=== PATIENT | female | born 1940 | race Caucasian/White ===

== ENCOUNTER 2024-01-02 14:06 | Inpatient (IN) | payer MEDICARE, SELFPAY ==
--- NOTE | ~2024-01-02 | XR_ITS ---
EXAMINATION: XR PELVIS CLINICAL INFORMATION: Status post right hip hemiarthroplasty COMPARISON: 01/02/2024 right hip radiograph TECHNIQUE: AP view of the pelvis. FINDINGS: Stool and gas overlies the bony pelvis and sacrum thus precluding adequate evaluation. The right hip prosthesis is intact. Postsurgical changes overlie the right proximal thigh. Left hip intact. XR/XR pelvis 1-2V IMPRESSION: Satisfactory appearance of the right hip prosthesis. Detail of the bony pelvis is obscured. Electronically signed by: Richard Harding MD 01/05/2024 09:34 AM [facility]
--- NOTE | ~2024-01-02 | CT_ITS ---
EXAM: CT scan of the head and cervical spine. INDICATION: fall head strike TECHNIQUE: A noncontrast CT scan was performed from the skull base to the vertex. A noncontrast CT scan of the cervical spine was performed from the base of the skull through T1 at 2.5 mm and 1.25 mm collimation. Coronal and sagittal reformats were obtained at the acquisition workstation. This CT examination was performed using dose optimization techniques as appropriate, variously including the following: *Automated exposure control *Adjustment of mA and/or kV according to patient size (this includes techniques or standardized protocols for targeted exams where dose is matched to indication/reason for exam; i.e. extremities or head) *Use of iterative reconstruction technique DLP: mGy-cm COMPARISON: None FINDINGS: Head: There is no evidence of acute intracranial hemorrhage or territorial infarction. Barboza-white matter differentiation is preserved. No abnormal mass effect or midline shift. No extra-axial fluid collections. No abnormal attenuation is demonstrated within the brain parenchyma. Scattered periventricular and deep white matter hypodensities consistent with microangiopathy. The ventricles and sulcal spaces are proportional without hydrocephalus. Proportional prominence of the ventricles and sulcal spaces. No acute osseous or soft tissue abnormalities. The mastoid air cells and visualized portions of the paranasal sinuses are notable for right maxillary sinus disease. Cervical Spine: The atlantooccipital and atlantoaxial articulations remain well aligned. Straightening of the normal cervical lordosis. Otherwise, there is anatomic alignment of the vertebral bodies and posterior elements. No evidence of acute fracture or subluxation. The vertebral body heights and disc spaces are notable for moderate disc space narrowing consistent with degenerative disc disease at C5-6 and C6-7.. There is no prevertebral soft tissue swelling. The thyroid gland and remaining cervical soft tissues are normal in appearance. The lung apices demonstrate no abnormalities. CT/CT cervical spine wo IV con IMPRESSION: No acute intracranial pathology. No acute fracture subluxation cervical spine. Electronically signed by: Richard Rendon MD 01/02/2024 05:40 PM [facility]
--- NOTE | ~2024-01-02 | CT_ITS ---
EXAM: CT scan of the head and cervical spine. INDICATION: fall head strike TECHNIQUE: A noncontrast CT scan was performed from the skull base to the vertex. A noncontrast CT scan of the cervical spine was performed from the base of the skull through T1 at 2.5 mm and 1.25 mm collimation. Coronal and sagittal reformats were obtained at the acquisition workstation. This CT examination was performed using dose optimization techniques as appropriate, variously including the following: *Automated exposure control *Adjustment of mA and/or kV according to patient size (this includes techniques or standardized protocols for targeted exams where dose is matched to indication/reason for exam; i.e. extremities or head) *Use of iterative reconstruction technique DLP: mGy-cm COMPARISON: None FINDINGS: Head: There is no evidence of acute intracranial hemorrhage or territorial infarction. Barboza-white matter differentiation is preserved. No abnormal mass effect or midline shift. No extra-axial fluid collections. No abnormal attenuation is demonstrated within the brain parenchyma. Scattered periventricular and deep white matter hypodensities consistent with microangiopathy. The ventricles and sulcal spaces are proportional without hydrocephalus. Proportional prominence of the ventricles and sulcal spaces. No acute osseous or soft tissue abnormalities. The mastoid air cells and visualized portions of the paranasal sinuses are notable for right maxillary sinus disease. Cervical Spine: The atlantooccipital and atlantoaxial articulations remain well aligned. Straightening of the normal cervical lordosis. Otherwise, there is anatomic alignment of the vertebral bodies and posterior elements. No evidence of acute fracture or subluxation. The vertebral body heights and disc spaces are notable for moderate disc space narrowing consistent with degenerative disc disease at C5-6 and C6-7.. There is no prevertebral soft tissue swelling. The thyroid gland and remaining cervical soft tissues are normal in appearance. The lung apices demonstrate no abnormalities. CT/CT head/brain wo IV con IMPRESSION: No acute intracranial pathology. No acute fracture subluxation cervical spine. Electronically signed by: Richard Rendon MD 01/02/2024 05:40 PM [facility]
--- NOTE | ~2024-01-02 | XR_ITS ---
EXAMINATION: XR KNEE, RIGHT CLINICAL INFORMATION: Right knee pain COMPARISON: None available. TECHNIQUE: Four views of the right knee. FINDINGS: No fracture or joint effusion. Alignment is anatomic. Minimal decrease in the medial joint space. Vascular calcifications noted in the thigh, popliteal fossa, and calf. XR/XR knee RT 4V IMPRESSION: 1. No acute fracture or dislocation. 2. Minimal degenerative changes of the medial joint space. Electronically signed by: Shirlene Hand MD 01/02/2024 04:14 PM [facility]
--- NOTE | ~2024-01-02 | US_ITS ---
EXAMINATION: US NONINVASIVE ASSESSMENT OF THE RIGHT LOWER EXTREMITY WITH ARTERIAL DUPLEX CLINICAL INFORMATION: RLE cold, no pulses COMPARISON: None available. TECHNIQUE: Duplex Doppler techniques with waveform analysis and measurement of velocities in the right common femoral, profunda femoris, superficial femoral, popliteal and tibial arteries were performed. FINDINGS: Common femoral artery: 77 cm/s. Diastolic flow reversal: No Profunda femoris artery: 39 cm/s. Diastolic flow reversal: No Superficial femoral artery (proximal): 175 cm/s. Diastolic flow reversal: No Superficial femoral artery (mid): 25 cm/s. Diastolic flow reversal: No Superficial femoral artery (distal): 39 cm/s. Diastolic flow reversal: No Popliteal artery: 23 cm/s Diastolic flow reversal: No Posterior tibial artery: 8 cm/s Diastolic flow reversal: No US/US arterial duplex LE RT IMPRESSION: Severe peripheral vascular disease. Monophasic flow throughout the right lower extremity suggesting inflow disease. Electronically signed by: Ashley Spaulding MD 01/02/2024 04:51 PM [facility]
--- NOTE | ~2024-01-02 | US_ITS ---
EXAMINATION: US TRIPLEX LOWER EXTREMITY, RIGHT CLINICAL INFORMATION: RLE pain and swelling COMPARISON: None available. TECHNIQUE: Color-flow triplex imaging with spectral analysis and compression Doppler were performed on the right lower extremity. FINDINGS: Respiratory variation, normal compression and augmented flow are noted throughout the right lower extremity. The visualized common femoral vein, superficial femoral vein, profunda femoral vein, popliteal vein and midcalf peroneal and posterior tibial venous segments show no evidence of deep venous thrombosis. There is no Marcos's cyst. US/US venous duplex LE RT IMPRESSION: No evidence of deep venous thrombosis involving the right lower extremity. Electronically signed by: Ashley Spaulding MD 01/02/2024 04:49 PM EST [facility]
--- NOTE | ~2024-01-02 | XR_ITS ---
EXAMINATION: XR HIP, RIGHT CLINICAL INFORMATION: Trauma COMPARISON: CT abdomen pelvis earlier today at 4:40 PM TECHNIQUE: Two views of the right hip. FINDINGS: Again seen is the impacted right subcapital femoral neck fracture, better demonstrated on the CT scan earlier today . The acetabular/femoral joint is intact. No other fractures are seen. Severe vascular calcifications are present. XR/XR hip RT w PEL1V IMPRESSION: Impacted right subcapital femoral neck fracture. Electronically signed by: Kunal Palafox MD 01/02/2024 07:27 PM [facility]
--- NOTE | ~2024-01-02 | CT_ITS ---
EXAMINATION: CT CHEST, ABDOMEN AND PELVIS WITHOUT CONTRAST CLINICAL INFORMATION: fall. abdominal trauma COMPARISON: None TECHNIQUE: Multidetector volumetric CT imaging of the chest, abdomen and pelvis was obtained without IV contrast. Axial MIP volume rendering provided. Sagittal and coronal reformatted images were obtained. This CT examination was performed using dose optimization techniques as appropriate, variously including the following: *Automated exposure control *Adjustment of mA and/or kV according to patient size (this includes techniques or standardized protocols for targeted exams where dose is matched to indication/reason for exam; i.e. extremities or head) *Use of iterative reconstruction technique DLP: 202 mGy-cm FINDINGS: LUNGS: Severe centrilobular emphysema. No focal consolidation, pleural effusion, or pneumothorax. MEDIASTINUM: The heart is not enlarged. There is no pericardial effusion or pericardial thickening. Extensive atherosclerosis of the thoracic aorta There are no pathologically enlarged mediastinal or hilar lymph nodes. AXILLA: No lymphadenopathy. LIVER, GALLBLADDER, AND BILIARY TREE: The liver is normal in size, shape, and attenuation. Cyst in the left lobe measuring 3 cm with calcified internal septations. There is no intra or extrahepatic bile duct dilation. The gallbladder is unremarkable with no evidence of radiopaque gallstones, gallbladder wall thickening, or obvious pericholecystic inflammatory changes. PANCREAS: Unremarkable SPLEEN: Unremarkable ADRENAL GLANDS: Unremarkable KIDNEYS AND URETERS: The kidneys are normal in size, shape, and attenuation. No hydronephrosis, hydroureter, or calculi seen. No perinephric stranding. BLADDER: Distended GASTROINTESTINAL TRACT: Large stool burden. ABDOMINAL WALL: No significant hernia is appreciated. LYMPH NODES: Normal PERITONEUM: No free intraperitoneal fluid or air. VASCULAR: Infrarenal abdominal aortic aneurysm measuring 5.2 x 3.9 cm. Extensive atherosclerotic plaque abdominal aorta and iliofemoral vessels. PELVIC VISCERA: Unremarkable OSSEOUS STRUCTURES: Impacted, angulated right subcapital femoral neck fracture. Angulated right second rib fracture anteriorly. CT/CT abdomen pelvis wo IV con IMPRESSION: 1. Impacted, angulated right subcapital femoral neck fracture. 2. Angulated right second rib fracture anteriorly. Infrarenal abdominal aortic aneurysm measuring 5.2 x 3.9 cm. Based on published guidelines in J Am Kristine Radiol 2013; 10(10):789-794 and J Vasc Surg. 2018; 67:2-77, the recommendation for an abdominal aortic aneurysm with diameter 4.5-5.4 cm is vascular consultation and subsequent follow-up every 6 months. 3. Severe centrilobular emphysema. Electronically signed by: Silverio Stark MD 01/02/2024 05:44 PM [facility]
[2024-01-02 14:16] VITALS: BP 220/110; BP 222/93; PULSE 70; RESP 14; TEMP 36.6; O2SAT 96; BMI 12.5
--- NOTE | 2024-01-02 14:52 | ED.FALL ---
HPI - Fall General Chief Complaint: Fall Stated Complaint: Fall w/ knee pain Time Seen by Provider: 01/02/24 14:32 Source: patient, family and EMS Mode of arrival: EMS Limitations: no limitations History of Present Illness ED Provider: NOELLE Limon HPI Narrative: This is a an 83-year-old female who has not been seen by a doctor in over 30 years presenting to the emergency department status post fall 2 days ago, previous to this fall she had another fall a few days prior, she comes in with right lower extremity pain. She is not sure exactly how she fell a few days ago she states that after the fall she could not move her right lower extremity, it feels numb & pain has been worsening her right lower extremity feels cold and it is now discolored. She refused to come to the hospital on that day, her daughter tried to convince her to come in however she adamantly refused they were able to finally convinced her today as she still has not been able to bear weight on that right lower extremity or bend her right knee. Patient is a current daily smoker. Denies chest pain, shortness of breath, headache, vision changes, dizziness, weakness, abdominal pain. Related Data Allergies Allergy/AdvReac Type Severity Reaction Status Date / Time Sulfa (Sulfonamide Allergy Unknown Verified 01/02/24 14:19 Antibiotics) Review of Systems Review of Systems: Yes all other systems are reviewed and are negative [facility] Past Medical History Attestation statement: The following information was validated with the patient. Source: old records reviewed and nursing notes reviewed Social History Social History Advance Directives: No Advance Directives Information Provided: Yes Do you have a plan to hurt others: No Plan Physical Exam Vital Signs: Vital Signs: Last Vital Signs Temp 98 F 01/02/24 14:16 Pulse 65 01/02/24 15:41 Resp 16 01/02/24 15:41 BP 239/101 H 01/02/24 15:41 Pulse Ox 96 01/02/24 15:41 O2 Del Method Room Air 01/02/24 15:41 BMI result Body Mass Index 12.5 vss Appearance: Alert.? Oriented X3.? No acute distress.? Cachectic appearing Head: Normocephalic, atraumatic, no step-offs or deformities Eyes: Pupils equal, round and reactive to light.? ENT: Pharynx normal.? Neck: Normal inspection.? Neck supple.? CVS: Normal heart rate and rhythm.? Pulses normal.? Respiratory: No respiratory distress.? Breath sounds normal.? Abdomen: Soft and nontender.? Skin: Skin warm and dry.? Normal skin color.? Normal skin turgor.? Extremities: No lower extremity edema.? No calf ttp. Global weakness. Unable to palpate popliteal, dorsalis pedis, anterior tibialis posterior tibialis pulses on the right. Palpable pulses on the left. Patient is guarding her right lower extremity around the knee she states she is unable to bend it. She is able to freely move her hip, ankle on the right however not her knee. Normal distal sensation. Normal left lower extremity with full range of motion to hip, knee and ankle. Right lower extremity appears slightly mottled and discolored. Back: No midline tenderness, no C-spine tenderness, full range of motion, no CVA tenderness bilaterally Neuro: Oriented X 3.? No motor deficit.? No sensory deficit. CN 2-12 intact Course Reevaluation(s) Reevaluation #1: CBC with no anemia, or leukocytosis. Thrombocytosis noted, nonspecific, could be secondary to poor p.o. intake are chronically elevated. Chemistry with LYDIA fluids ordered. No other findings requiring acute intervention. Troponin and CPK still pending. Coags unremarkable. X-ray of knee, DVT study and arterial scan pending. Time: 15:33 Reevaluation #2: Patient's troponin elevated to 107.3, nonischemic EKG this could be secondary to demand from hypertension and or rhabdo/kidney injury. Will repeat at the 3 hour salvador. Time: 16:00 Medications Administered Generic Name Dose Route Start Last Admin Trade Name Freq PRN Reason Stop Dose Admin Sodium Chloride 1,000 mls @ 999 mls/hr 01/02/24 15:30 01/02/24 15:29 Ns IV 01/02/24 16:30 999 mls/hr .Q1H1M [facility] Administration Medical Decision Making Medical Decision Making [facility] Narrative: 1455 83-year-old female presents with fall 2 days ago and right lower extremity pain. Physical exam significant for No lower extremity edema.? No calf ttp. Global weakness. Unable to palpate popliteal, dorsalis pedis, anterior tibialis posterior tibialis pulses on the right. Palpable pulses on the left. Patient is guarding her right lower extremity around the knee she states she is unable to bend it. She is able to freely move her hip, ankle on the right however not her knee. Normal distal sensation. Normal left lower extremity with full range of motion to hip, knee and ankle. Right lower extremity appears slightly mottled and discolored. Will rule out fracture, dislocation of right knee/patella as well as arterial and venous occlusion of right lower extremity. Due to fall, trauma and unclear reason as to why patient fell will obtain CT head, neck, chest, abdomen and pelvis. Will also obtain a CPK to rule out rhabdo. No signs of intracranial hemorrhage, stroke, posterior stroke. No signs of cervical spine injury. Plan labs, imaging. Differential Diagnosis Differential Diagnoses: The differential diagnosis associated with the presentation includes (Will rule out fracture, dislocation of right knee/patella as well as arterial and venous occlusion of right lower extremity. Due to fall, trauma and unclear reason as to why patient fell will obtain CT head, neck, chest, abdomen and pelvis. Will also obtain a CPK to rule out rhabdo. No signs of i) Admission/Observation Consideration of admission/observation: Escalation of care including admission/observation considered Lab Data MDM Lab Attestation statement: I reviewed the patient's lab results. 01/02/24 14:57 01/02/24 14:57 Labs: Lab Results 01/02/24 01/02/24 Range/Units 14:57 15:25 WBC 9.9 (4.8-10.8) X10*3/uL RBC 4.91 (4.20-5.50) X10*6/uL Hgb 15.0 (12.0-16.0) g/dl Hct 46.0 (37.0-47.0) % MCV 93.7 (80.0-98.0) fL MCH 30.5 (27.0-33.0) pg MCHC 32.6 (31.0-35.0) g/dl RDW 14.4 (11.0-16.0) % Plt Count 659 H (160-400) X10*3/uL MPV 8.9 L (9.4-12.3) fL Immature Gran % (Auto) 0.8 H (0.0-0.4) % Neut % (Auto) 84.6 H (45-73) % Lymph % (Auto) 5.0 L (20-40) % [place] % (Auto) 9.2 (2-11) % Eos % (Auto) 0.1 (0-4) % Baso % (Auto) 0.3 (0-2) % Lymph # (Auto) 0.5 L (1.2-4.9) X10*3/uL [place] # (Auto) 0.9 (0.1-1.2) X10*3/uL Eos # (Auto) 0.0 (0.0-0.4) X10*3/uL Baso # (Auto) 0.0 (0.0-0.2) X10*3/uL Abs Immat Gran (auto) 0.08 H (0.00-0.03) X10*3/uL Absolute Neuts (auto) 8.4 H (2.0-8.3) x10*3/uL Absolute Nucleated RBC 0.000 (0.0-0.012) X10*3/uL Nucleated RBC % (auto) 0.0 (0.0-0.2) /100WBC PT 10.4 L (10.9-12.4) SEC INR 0.9 (0.9-1.1) Sodium 143 (135-145) mmol/L Potassium 5.1 (3.3-5.1) mmol/L Chloride 100 (96-108) mmol/L Carbon Dioxide 28 (22-29) mmol/L Anion Gap 20 (12-20) BUN 47 H (9-16) mg/dL Creatinine 1.49 H (0.5-1.4) mg/dL Estim Creat Clear Calc 15.3 Estimated GFR 33 Random Glucose 119 H (60-115) mg/dL Calcium 10.5 H (8.4-10.2) mg/dL Magnesium 2.1 (1.6-2.6) mg/dL Total Bilirubin 0.6 (0.0-1.0) mg/dL AST 83 H (5-31) U/L ALT 56 H (0-31) U/L Alkaline Phosphatase 87 (39-117) U/L Total Creatine Kinase 1446 H (26-140) U/L Troponin I High Sens 207.3 H* (<3.5-17.0) ng/L Total Protein 7.4 (6.5-8.0) g/dL Albumin 4.1 (3.5-5.0) g/dL Independent Interpretation I performed an independent interpretation of an: EKG (Vent. Rate : 076 BPM Atrial Rate : 076 BPM P-R Int : 126 ms QRS Dur : 066 ms QT Int : 372 ms P-R-T Axes : 083 -68 076 degrees QTc Int : 418 ms Sinus rhythm with Premature atrial complexes Left axis deviation Anteroseptal infarct , age undetermined Abnormal ECG No previ) and CT Scan Radiology Impression Discussion of test interpretation with radiology: I have reviewed the radiologist's reading. Critical Care Time Critical Care Time Critical Care Time: Yes Total Critical Care Time: 35 Attestation: I attest to this time spent taking care of the patient, obtaining history, physical, reviewing labs, imaging, treatment of patients condition +/- specialist/hospitalist consult Discharge Plan Discharge Clinical Impression: Acute pain of right knee, Fall, Rhabdomyolysis, LYDIA (acute kidney injury), Hypertension Patient Disposition: Still a Patient Print Language: Armenian
--- NOTE | 2024-01-02 14:56 | ECG_ITS ---
Test Reason : fall Blood Pressure : / mmHG Vent. Rate : 076 BPM Atrial Rate : 076 BPM P-R Int : 126 ms QRS Dur : 066 ms QT Int : 372 ms P-R-T Axes : 083 -68 076 degrees QTc Int : 418 ms Sinus rhythm with Premature atrial complexes Left axis deviation Anteroseptal infarct , age undetermined Abnormal ECG No previous ECGs available Referred By: Heidi Limon Electronically Signed By:STELLA AGUILAR MD
[2024-01-02 15:02] LABS: MANUAL DIFF FLAG NO
[2024-01-02 15:04] LABS: Basophils Percent Auto 0.3 % (0-2); Eosinophils Percent Auto 0.1 % (0-4); Imm Gran Abs Auto 0.08 X10*3/uL (0.00-0.03); Imm Gran Pct Auto 0.8 % (0.0-0.4); Lymphocytes Absolute Auto 0.5 X10*3/uL (1.2-4.9); Mean Corpuscular HGB Conc 32.6 g/dl (31.0-35.0); Mean Corpuscular Hemoglobin 30.5 pg (27.0-33.0); Mean Corpuscular Volume 93.7 fL (80.0-98.0); Mean Platelet Volume 8.9 fL (9.4-12.3); Monocytes Absolute Auto 0.9 X10*3/uL (0.1-1.2); Monocytes Percent Auto 9.2 % (2-11); Neutrophils Absolute Auto 8.4 x10*3/uL (2.0-8.3); Neutrophils Percent Auto 84.6 % (45-73); Platelet Count 659 X10*3/uL (160-400); Red Blood Count 4.91 X10*6/uL (4.20-5.50); Red Cell Distribution Width 14.4 % (11.0-16.0); White Blood Count 9.9 X10*3/uL (4.8-10.8)
[2024-01-02 15:11] LABS: INTERNATIONAL NORM RATIO 0.9 (0.9-1.1); Prothrombin Time 10.4 SEC (10.9-12.4)
[2024-01-02 15:16] LABS: Alanine Aminotransferase 56 U/L (0-31); Albumin Level 4.1 g/dL (3.5-5.0); Alkaline Phosphatase 87 U/L (39-117); Anion Gap 20 (12-20); Aspartate Amino Transferase 83 U/L (5-31); Bilirubin Total 0.6 mg/dL (0.0-1.0); Blood Urea Nitrogen 47 mg/dL (9-16); Calcium 10.5 mg/dL (8.4-10.2); Carbon Dioxide 28 mmol/L (22-29); Chloride 100 mmol/L (96-108); Creatinine Clr Calc Pharmacy 15.3; Estimated Glomerular Filt Rate 33; Glucose Random 119 mg/dL (60-115); Magnesium 2.1 mg/dL (1.6-2.6); Potassium 5.1 mmol/L (3.3-5.1); Sodium 143 mmol/L (135-145); Total Protein 7.4 g/dL (6.5-8.0)
[2024-01-02] MEDS: 0.9 % Sodium Chloride 1,000 ML 999 ML IV ×2 (15:29→17:05)
--- NOTE | 2024-01-02 15:35 | PC.NURSE ---
patient presents to the ED via ems stating that she fell two days ago on her right side/leg and has been non ambulatory since. patient daughter at bedside stated to this RN during triage patient right lower limb was colder than the left. patient undressed into hospital attire and left calf/ankle/foot noted to be ashen, mottled and cold to the touch. patient unable to lift leg but able to wiggle toes. unable to find pedal pulse with doppler or palpation, but patient noted to have weak popiteal pulse. IV access started in the patients left FA #[id number], labs drawn and sent. called ED provider to bedside due to patient findings. patient has not seen a doctor in 30 years, is not on any current medications.
[2024-01-02 15:41] VITALS: BP 239/101; PULSE 65; RESP 16; O2SAT 96
[2024-01-02 15:56] LABS: Troponin-I High Sensitivity 207.3 ng/L (<3.5-17.0)
[2024-01-02] MEDS: amLODIPine Besylate 5 MG TABLET PO (16:39)
[2024-01-02 17:42] VITALS: BP 187/82; PULSE 59; RESP 12; O2SAT 98
[2024-01-02] MEDS: Morphine Sulfate 2 MG/ML CARTRIDGE IVPUSH ×2 (18:18→23:13)
[2024-01-02] MEDS: ondansetron HCL 4 MG/2 ML VIAL IVPUSH (18:18)
--- NOTE | 2024-01-02 18:48 | PC.NURSE ---
16 fr clinton placed by this RN, 700 cc urine output
--- NOTE | 2024-01-02 19:33 | PM.IMHP ---
History of Present Illness Date of Service: 01/02/24 Attending physician on admission: Kelsey Selby Chief Complaint: Right knee and leg pain Pt is a 83-year-old female with no known significant PMH who has not seen a medical provider in 30+ years who presents to the ED with?right leg and knee pain after a mechanical fall at home 2 days prior. Pt is accompanied by her daughters who help supplement HPI. Pt reports was putting the TV remote on a side table when she fell, landing on her right side. Pt is unsure exactly how she fell but denies lightheadedness or dizziness. Experienced right knee and leg pain and found she was unable to stand or support her weight. Also had right foot numbness and felt right leg was cold. Called out to her daughter who lives in a separate part of the house and she and her were able to help patient back into the bed. Family attempted to convince patient to come to the ED at that time for further evaluation, but patient refused as she likes to take care of herself. The following day pt had continued pain and was unable to ambulate or support weight on her right leg, but again refused medical evaluation. Patient eventually relented today to come to the hospital for treatment. Family also reports patient apparently had another fall at home earlier in the week. Patient otherwise denies any acute medical complaints. No change to bowel or bladder habits. Denies chest pain/pressure, palpitations. No shortness of breath or difficulty breathing. Denies nausea, vomiting, abdominal pain. Of note, daughter states patient has not left the house and over 5 years. Patient has around a 100+ pack-year smoking history. Has been smoking mostly 2 packs per day since age 14, though recently cut back to a pack daily. Normally eats 1-2 meals daily and drinks Boost nutritional supplement. In the ED pt was hypertensive up to 239/101, vitals otherwise stable and WNL. Labs were significant for BUN 47, creatinine 1.49, AST 83, ALT 56, CPK 1446, and initial troponin 207.3 with repeat flat at 148.0. No leukocytosis. Stable H&H. No significant electrolyte abnormalities. Hip and pelvis x-ray showed impacted right subcapital femoral neck fracture. Right lower extremity arterial duplex showed severe peripheral vascular disease without occlusion, suggesting inflow disease. X-ray of right knee negative for acute fracture or dislocation. Venous duplex of right lower extremity negative for DVT. Head CT negative for acute intracranial pathology. CT of cervical spine negative for acute fracture or subluxation. CT of chest and abdomen found angulated right 2nd rib fracture anteriorly, triple a measuring 5.2 x 3.9 cm, and severe centrilobular emphysema. EKG demonstrated sinus rhythm with PACs but no evidence of significant ST elevations or depressions. Pt was treated with 2 L IVF, morphine, acetaminophen, ondansetron, amlodipine 5 mg p.o., and labetalol 5 mg IV. Pt will be admitted to the hospital for treatment and further evaluation of acute right hip fracture with surgical intervention likely on Thursday. Review of Systems Review of Systems: Negative except for that which is stated in the HPI Yes all other systems are reviewed and are negative [facility] Social History Advance Directives: No Advance Directives Information Provided: Yes Do you have a plan to hurt others: No Plan Meds Allergies Allergy/AdvReac Type Severity Reaction Status Date / Time Sulfa (Sulfonamide Allergy Unknown Verified 01/02/24 14:19 Antibiotics) Physical Exam Vital Signs and Narrative: Vital Signs: Last Vital Signs Temp 98 F 01/02/24 14:16 Pulse 59 01/02/24 17:42 Resp 12 01/02/24 17:42 BP 187/82 H 01/02/24 17:42 Pulse Ox 98 01/02/24 17:42 O2 Del Method Room Air 01/02/24 17:42 BMI result Body Mass Index 12.5 General: AOx3, cachectic, frail looking, in no acute distress Resp: Lungs clear to auscultation but diminished bilaterally CVS: Regularly irregular rhythm GI: +BS, NT, no distention Skin: Warm, dry Neuro: Cranial nerves II-XII grossly intact bilaterally. Motor grossly intact bilaterally Extremities: No edema. Right leg cool to the touch and shortened and externally rotated. Reduced ROM of right hip secondary to pain. Psych: Appropriate affect Results Labs 01/02/24 14:57 01/02/24 14:57 Labs: Laboratory Results - last 24 hr 01/02/24 01/02/24 14:57 15:25 MCV 93.7 MCH 30.5 MCHC 32.6 RDW 14.4 Plt Count 659 H MPV 8.9 L Immature Gran % (Auto) 0.8 H Neut % (Auto) 84.6 H Lymph % (Auto) 5.0 L [place] % (Auto) 9.2 Eos % (Auto) 0.1 Baso % (Auto) 0.3 Lymph # (Auto) 0.5 L [place] # (Auto) 0.9 Eos # (Auto) 0.0 Baso # (Auto) 0.0 Abs Immat Gran (auto) 0.08 H Absolute Neuts (auto) 8.4 H Absolute Nucleated RBC 0.000 Nucleated RBC % (auto) 0.0 PT 10.4 L INR 0.9 Anion Gap 20 Estim Creat Clear Calc 15.3 Estimated GFR 33 Random Glucose 119 H Calcium 10.5 H Magnesium 2.1 Total Bilirubin 0.6 AST 83 H ALT 56 H Alkaline Phosphatase 87 Total Creatine Kinase 1446 H Troponin I High Sens 207.3 H* Total Protein 7.4 Albumin 4.1 Imaging Radiologist's Impressions: Impressions Knee X-Ray 01/02/24 15:00 IMPRESSION: 1. No acute fracture or dislocation. 2. Minimal degenerative changes of the medial joint space. Electronically signed by: Shirlene Hand MD 01/02/2024 04:14 PM EST RP Venous Duplex 01/02/24 15:47 IMPRESSION: No evidence of deep venous thrombosis involving the right lower extremity. Electronically signed by: Ashley Spaulding MD 01/02/2024 04:49 PM EST RP Duplex Scan Lower Extremity Artery 01/02/24 15:51 IMPRESSION: Severe peripheral vascular disease. Monophasic flow throughout the right lower extremity suggesting inflow disease. Electronically signed by: Ashley Spaulding MD 01/02/2024 04:51 PM EST RP Abdomen/Pelvis CT 01/02/24 16:17 IMPRESSION: 1. Impacted, angulated right subcapital femoral neck fracture. 2. Angulated right second rib fracture anteriorly. Infrarenal abdominal aortic aneurysm measuring 5.2 x 3.9 cm. Based on published guidelines in J Am Kristine Radiol 2013; 10(10):789-794 and J Vasc Surg. 2018; 67:2-77, the recommendation for an abdominal aortic aneurysm with diameter 4.5-5.4 cm is vascular consultation and subsequent follow-up every 6 months. 3. Severe centrilobular emphysema. Electronically signed by: Silverio Stark MD 01/02/2024 05:44 PM EST RP Cervical Spine CT 01/02/24 16:17 IMPRESSION: No acute intracranial pathology. No acute fracture subluxation cervical spine. Electronically signed by: Richard Rendon MD 01/02/2024 05:40 PM EST RP Chest CT 01/02/24 16:17 IMPRESSION: 1. Impacted, angulated right subcapital femoral neck fracture. 2. Angulated right second rib fracture anteriorly. Infrarenal abdominal aortic aneurysm measuring 5.2 x 3.9 cm. Based on published guidelines in J Am Kristine Radiol 2013; 10(10):789-794 and J Vasc Surg. 2018; 67:2-77, the recommendation for an abdominal aortic aneurysm with diameter 4.5-5.4 cm is vascular consultation and subsequent follow-up every 6 months. 3. Severe centrilobular emphysema. Electronically signed by: Silverio Stark MD 01/02/2024 05:44 PM EST RP Head CT 01/02/24 16:17 IMPRESSION: No acute intracranial pathology. No acute fracture subluxation cervical spine. Electronically signed by: Richard Rendon MD 01/02/2024 05:40 PM EST RP Hip/Pelvis X-Ray 01/02/24 18:45 IMPRESSION: Impacted right subcapital femoral neck fracture. Electronically signed by: Kunal Palafox MD 01/02/2024 07:27 PM EST RP Assessment and Plan (1) Closed right hip fracture: Status: Acute Plan Pt is a 83-year-old female with no known significant PMH who has not seen a medical provider in 30+ years who presents to the ED with?right leg and knee pain after a mechanical fall at home 2 days prior. Pt will be admitted to the hospital for treatment and further evaluation of acute right hip fracture. Right hip fracture S/p mechanical fall at home 2 days prior Hip x-ray found impacted right subcapital femoral neck fracture Analgesics for pain management Orthopedic consult NPO past midnight on Thursday in anticipation of surgical intervention on Thursday morning Rhabdomyolysis CPK mildly elevated at 1446 Likely in the setting of above Patient received IVF in the ED Trend CPK tomorrow Elevated troponins Initial troponin 207.3 with repeat down trending to 148.0 Patient asymptomatic, EKG without ischemic changes Likely type 2 in the setting of increased demand Monitor on telemetry Hypertensive urgency BP as high as 239/101, patient asymptomatic Patient not on any home meds, has not seen a medical provider in 30+ years Patient received amlodipine 5 mg p.o. and labetalol 5 mg IV in the ED Will start on amlodipine 5 mg p.o. daily Labetalol 5 mg IV p.r.n. for SBP>200 Will work to slowly decrease SBP over the next few days AAA CTA of chest found infrarenal AAA measuring 5.2 x 3.9 cm Likely secondary to uncontrolled hypertension Treat HTN as above Vascular surgery consult PVD Right lower extremity arterial duplex found severe peripheral vascular disease without occlusion, likely inflow disease Vascular surgery consult Elevated creatinine Creatinine 1.49 at time of presentation, baseline unknown ?CKD 4 Patient received 2 L IVF in the ED Follow renal function Severe protein calorie malnutrition BMI 12.5 Likely secondary to decreased p.o. intake Nutrition consult Ensure supplementation DNR/DNI, verified with pt and family at bedside Attending:?Dr. Martinez DVT Prophylaxis: Pneumatic compression due to impending surgical intervention Pt will require a hospitalization of at least two nights for treatment of acute right hip fracture requiring surgical intervention that will be performed on Thursday. Patient will need?close monitoring of vitals, including blood pressure due to uncontrolled hypertension, as well as analgesics and close monitoring of labs. Quality Stroke Does the patient have a stroke diagnosis?: No VTE Prior VTE?: No VTE Risk Level:: Medical - moderate - high VTE Device Contraindication: N/A - Device Ordered VTE Drug Contraindication: Treatment Not Indicated
[2024-01-02 19:54] VITALS: BP 222/81; PULSE 71
[2024-01-02] MEDS: Labetalol HCL 100 MG/20 ML VIAL IVPUSH (19:54)
--- NOTE | 2024-01-02 19:54 | MHC.EDTECH ---
this tech noticed a light pink bed sore on pt's coccyx, no open sore. pt is now currently laying left lateral with a pillow underneath her to prevent further injuries. RN made aware
[2024-01-02] MEDS: Acetaminophen 1,000 MG/100 ML PIGGYBACK 400 MG IV (19:57)
[2024-01-02 20:38] VITALS: BP 163/70; PULSE 59; RESP 12; TEMP 36.8; O2SAT 94
[2024-01-03] VITALS: BP 173/79; PULSE 59; RESP 16; TEMP 37.1; O2SAT 96
[2024-01-03 00:05] VITALS: BMI 12.5
--- NOTE | 2024-01-03 01:52 | MHC.EVENTN ---
Patient converted to NSR at 2100 on 01/01, MD made aware, Amiodarone Drip stopped.
--- NOTE | 2024-01-03 01:54 | PC.ADMIT ---
Patient arrived to S4 via stretcher from ED, patients daughters at bedside. Patient is alert/oriented, appears slightly confused but patients daughters state it is because of the morphine and that normally she is sharp as a tack . Patient lives with her in a two family house. They live upstairs and the patients daughter lives downstairs. Smoker for 70 yrs, down to 1/2 pack day. Patient normally ambulates independently but has been declining over the past 6 months. She has a 4 leg cane at home that she doesnt use. Daughters report generalized weakness and a history of falls within last 6 months. Decreased appetite, loss of weight, not very mobile at home, mostly on the couch watching television. Patient reports macular degeneration and poor eye-sight. 34.1 kg by bedscale. Daughters left boost drinks that she has been drinking tonight. IV morphine administered before moving her and assessing her skin and condition. Her skin is thin, fragile, dry, but intact. Coccyx red but blanchable, barrier cream and pink pad place over coccyx and repositioning every 2-4 hours. Blood pressure is coming down slowly, currently in the 170's. Oxygen was 89%, lungs are clear/dim. Patient placed on 1-2L overnight to get sats >92%. She has no complaints of pain at this time and tolerated rolling well without any signs of discomfort. Abdomen is soft, non tender. F/C in place draining clear yellow urine. Patients daughters would like to be notified before Ortho consult so that they could be present. No acute events. Will continue to [facility].
[2024-01-03 03:43] VITALS: BP 164/77; PULSE 97; RESP 16; TEMP 36.6; O2SAT 90
[2024-01-03 08:00] VITALS: BP 156/76; PULSE 58; RESP 16; TEMP 36.8; O2SAT 98
[2024-01-03] MEDS: amLODIPine Besylate 5 MG TABLET PO (08:36)
[2024-01-03] MEDS: 0.9 % Sodium Chloride Flush 3 ML SYRINGE IVFLUSH ×2 (08:36→18:16)
--- NOTE | 2024-01-03 08:39 | PHA.MEDREC ---
Addendum entered by Graciela Valenzuela RPh 01/03/24 08:48: Reviewed by [facility] Original Note: Pharmacy Consult ? Medication Reconciliation Pharmacy has completed the medication reconciliation.
--- NOTE | 2024-01-03 09:31 | MHC.CM.PN ---
CM met with Patient at bedside and addressed IMM with her, providing Patient with the original and a copy has been placed on the chart. CM assisted Patient with the completion of a HCP; she has named her Daughter/Nimco as her HCP. STR appears likely, pending PT eval and Patient is agreeable to the initiation of a local SNF search. CM has initiated and will follow for dc planning. Patient lives in an apartment with her and has not seen a PCP in 30 years.
--- NOTE | 2024-01-03 09:53 | PM.CNOR ---
History of Present Illness HPI Consult date: 01/03/24 Chief complaint: right hip fracture Narrative: Patient is an 83-year-old female with a history significant for not evaluated by a doctor for over 30 years who presented to the hospital yesterday for evaluation of right leg pain after a fall 2 days prior. Patient states that she has been unable to weightbear since injury. Patient was evaluated in the emergency department, where x-rays and CT scans were taken revealing right femoral neck fracture of the right hip. Of note, patient was also diagnosed with rhabdomyolysis in the emergency department, as well as having elevated troponins. While in the ED,The patient was also found to have a significant abdominal aortic aneurysm, as well as severe peripheral vascular disease of the right lower extremity. At that time, patient was reporting diminished sensation and paleness of the right lower extremity. Today, the patient reports that she is feeling well, although she is still experiencing Diminished sensation and ability to move the right foot. No other acute complaints or concerns at this time. [facility] Social History Social History Household Members: Spouse and Children Household Members Other:: lives with / children live in same home downstairs Housing: House Do you presently have visiting nurse or other home services: No Patient Tobacco Use Status: Current everyday Tobacco user Tobacco use type: Cigarette Cigarette Packs Per Day: 0.5 Cigarettes Per Day: 10.0 Years Smoked: 70 Smoked in Last 30 Days: Yes Patient Interested in Nicotine Replacement: Yes Patient Given Instructions on How to Stop Smoking: Yes Date Education Initiated: 01/02/24 Second Hand Smoke Exposure: Yes Use of substances other than those prescribed or required for medical reasons: No Currently Displaying Signs/Symptoms of Drug Intoxication Withdrawal: No Have you been hit, kicked, punched, or otherwise hurt by someone within the past year? If so, by whom?: No Do you feel safe in your current relationship?: No Is there a partner from a previous relationship who is making you feel unsafe now?: No Are you made to feel afraid or neglected: No Advance Directives: No Advance Directives Information Provided: Yes Advance Directives on File: Yes Advance Directives Date on File: 01/02/24 Do you have a plan to hurt others: No Plan Recently lost weight without trying: Yes How much weight loss: Unsure Eating poorly because of decreased appetite: Yes Nutrition screen score: 5 Nutrition Risks: No Nutritional Risk Patient : No : No Poor oral hygiene: No service: No Meds Allergies Allergy/AdvReac Type Severity Reaction Status Date / Time Sulfa (Sulfonamide Allergy Unknown Verified 01/02/24 14:19 Antibiotics) Active Medications: Current Medications Acetaminophen (Acetaminophen 325 Mg Tablet) 650 mg PO Q6H PRN PRN Reason: Pain, Mild (Pain Scale 1-3), fever or headache Amlodipine Besylate (Amlodipine Besylate 5 Mg Tablet) 5 mg PO DAILY [facility]; Protocol Last Admin: 01/03/24 08:36 Dose: 5 mg Benzonatate (Benzonatate 100 Mg Capsule) 100 mg PO TID PRN PRN Reason: Cough Calcium Carbonate (Calcium Carbonate 750 Mg Tab.Chew) 750 mg PO Q4H PRN PRN Reason: Heartburn Cefazolin Sodium/Dextrose (Ancef) 2 gm in 50 mls @ 100 mls/hr IV PREOP ONE Stop: 01/04/24 08:29 Labetalol HCl (Labetalol Hcl 100 Mg/20 Ml Vial) 5 mg IVPUSH ONCE PRN PRN Reason: SBP >200 Magnesium Hydroxide (Milk Of Magnesia 30 Ml Oral.Susp) 30 ml PO DAILY PRN PRN Reason: Constipation Melatonin (Melatonin 3 Mg Tablet) 6 mg PO BEDTIME PRN PRN Reason: Insomnia Morphine Sulfate (Morphine Sulfate 2 Mg/Ml Cartridge) 2 mg IVPUSH Q4H PRN; Protocol PRN Reason: Pain, Severe (Pain Scale 7-10) Last Admin: 01/02/24 23:13 Dose: 2 mg Nicotine (Nicotine 21 Mg Patch.Td24) 21 mg TRANSDERMA DAILY [facility] Last Admin: 01/03/24 08:37 Dose: Not Given Ondansetron HCl (Ondansetron Hcl 4 Mg/2 Ml Vial) 4 mg IVPUSH Q8H PRN PRN Reason: Nausea and Vomiting Sodium Chloride (0.9 % Sodium Chloride Flush 3 Ml Syringe) [facility] Last Admin: 01/03/24 08:36 Dose: 3 ml Home Medications ?Medication ?Instructions ?Recorded ?Confirmed ?Last Taken ?Type acetaminophen 500 mg tablet 500 mg PO Q6H PRN Pain 01/03/24 01/03/24 Unknown History Physical Exam Vital Signs: Vital Signs: Last Vital Signs Temp 98.2 F 01/03/24 08:00 Pulse 58 01/03/24 08:00 Resp 16 01/03/24 08:00 BP 156/76 H 01/03/24 08:00 Pulse Ox 98 01/03/24 08:00 O2 Del Method Nasal Cannula 01/03/24 08:00 O2 Flow Rate 2.0 01/03/24 08:00 BMI result Body Mass Index 12.5 Extrem: Other: On inspection, patient's right leg is slightly shortened, but not externally rotated No evidence of erythema, ecchymosis No evidence of infection Patient has diminished ability to flex and extend the right foot Compartments soft, nontender Distal sensation diminished, capillary refill very delayed, consistent with severe peripheral vascular disease found on arterial flow scan Results Labs 01/02/24 14:57 01/02/24 14:57 Labs: Abnormal lab results 01/02/24 01/02/24 01/02/24 Range/Units 14:57 15:25 19:16 Plt Count 659 H (160-400) X10*3/uL MPV 8.9 L (9.4-12.3) fL Immature Gran % (Auto) 0.8 H (0.0-0.4) % Neut % (Auto) 84.6 H (45-73) % Lymph % (Auto) 5.0 L (20-40) % Lymph # (Auto) 0.5 L (1.2-4.9) X10*3/uL Abs Immat Gran (auto) 0.08 H (0.00-0.03) X10*3/uL Absolute Neuts (auto) 8.4 H (2.0-8.3) x10*3/uL PT 10.4 L (10.9-12.4) SEC BUN 47 H (9-16) mg/dL Creatinine 1.49 H (0.5-1.4) mg/dL Random Glucose 119 H (60-115) mg/dL Calcium 10.5 H (8.4-10.2) mg/dL AST 83 H (5-31) U/L ALT 56 H (0-31) U/L Total Creatine Kinase 1446 H (26-140) U/L Troponin I High Sens 207.3 H* 148.0 H* (<3.5-17.0) ng/L H & H 01/02/24 Range/Units 14:57 Hgb 15.0 (12.0-16.0) g/dl Hct 46.0 (37.0-47.0) % Coagulation 01/02/24 Range/Units 14:57 INR 0.9 (0.9-1.1) All other labs normal. Diagnostic results Hip x-ray: report reviewed and image reviewed (X-rays obtained in the ED yesterday and independently reviewed by me, Jesse Valenzuela PA-C, demonstrate minimally displaced and impacted femoral neck fracture of the right hip. ) Hip CT: report reviewed and image reviewed Assessment and Plan (1) Closed fracture of neck of right femur: Status: Acute Plan 1. Femoral neck fracture right hip Status post fall proximally 2 days ago Case was discussed with Dr. Mason, and a collaborative treatment plan was formed: I educated the patient about the condition. I discussed both operative and nonoperative treatment options. The patient would like to proceed with surgery. The risks and benefits of operative treatment were discussed with the patient and the patient wishes to proceed with surgery. These risks include, but are not limited to, risk of damage to blood vessels, nerves, tendons, infection, recurrence, blood clots, incomplete relief of preoperative symptoms, persistent pain, possible need for further surgery, and the risks associated with regional blocks and/or anesthesia. Plan is to take the patient to the operating room on 01/04/2024 for the following procedures pending medical clearance: 1. Right hip hemiarthroplasty NPO at midnight Continue with all other recommendations per Medicine Procedures Date of Service Date of Service: 01/03/24
--- NOTE | 2024-01-03 10:30 | P.PNIM_ITS ---
Subjective Subjective Date of Service: 01/03/24 Interval History: pain controlled Physical Exam 2 Vital Signs: Vital Signs: Last Vital Signs Temp 98.2 F 01/03/24 08:00 Pulse 58 01/03/24 08:00 Resp 16 01/03/24 08:00 BP 156/76 H 01/03/24 08:00 Pulse Ox 98 01/03/24 08:00 O2 Del Method Nasal Cannula 01/03/24 08:00 O2 Flow Rate 2.0 01/03/24 08:00 BMI result Body Mass Index 12.5 General: AO X 3, no acute distress, frail appearing, cechexic Resp: diminished bilateral, no accessory muscles used CVS: S1,S2,RRR GI: soft, non tender, non distended Neuro: motor grossly intact, alert Psych: appropriate affect, appropriate insight Objective Data Active Medications Acetaminophen (Acetaminophen 325 Mg Tablet) 650 mg PO Q6H PRN PRN Reason: Pain, Mild (Pain Scale 1-3), fever or headache Amlodipine Besylate (Amlodipine Besylate 5 Mg Tablet) 5 mg PO DAILY [facility]; Protocol Last Admin: 01/03/24 08:36 Dose: 5 mg Documented By: PODMORP Benzonatate (Benzonatate 100 Mg Capsule) 100 mg PO TID PRN PRN Reason: Cough Calcium Carbonate (Calcium Carbonate 750 Mg Tab.Chew) 750 mg PO Q4H PRN PRN Reason: Heartburn Cefazolin Sodium/Dextrose (Ancef) 2 gm in 50 mls @ 100 mls/hr IV PREOP ONE Stop: 01/04/24 08:29 Labetalol HCl (Labetalol Hcl 100 Mg/20 Ml Vial) 5 mg IVPUSH ONCE PRN PRN Reason: SBP >200 Magnesium Hydroxide (Milk Of Magnesia 30 Ml Oral.Susp) 30 ml PO DAILY PRN PRN Reason: Constipation Melatonin (Melatonin 3 Mg Tablet) 6 mg PO BEDTIME PRN PRN Reason: Insomnia Morphine Sulfate (Morphine Sulfate 2 Mg/Ml Cartridge) 2 mg IVPUSH Q4H PRN; Protocol PRN Reason: Pain, Severe (Pain Scale 7-10) Last Admin: 01/02/24 23:13 Dose: 2 mg Documented By: ANDREZ Nicotine (Nicotine 21 Mg Patch.Td24) 21 mg TRANSDERMA DAILY [facility] Last Admin: 01/03/24 08:37 Dose: Not Given Documented By: PODMORP Non-Admin Reason: Patient Refused Ondansetron HCl (Ondansetron Hcl 4 Mg/2 Ml Vial) 4 mg IVPUSH Q8H PRN PRN Reason: Nausea and Vomiting Sodium Chloride (0.9 % Sodium Chloride Flush 3 Ml Syringe) 3 ml IVFLUSH QSHIFT [facility] Last Admin: 01/03/24 08:36 Dose: 3 ml Documented By: PODMORP Labs 01/02/24 14:57 01/02/24 14:57 Labs: Laboratory Results - last 24 hr 01/02/24 01/02/24 01/02/24 14:57 15:25 19:16 MCV 93.7 MCH 30.5 MCHC 32.6 RDW 14.4 Plt Count 659 H MPV 8.9 L Immature Gran % (Auto) 0.8 H Neut % (Auto) 84.6 H Lymph % (Auto) 5.0 L Barron % (Auto) 9.2 Eos % (Auto) 0.1 Baso % (Auto) 0.3 Lymph # (Auto) 0.5 L Barron # (Auto) 0.9 Eos # (Auto) 0.0 Baso # (Auto) 0.0 Abs Immat Gran (auto) 0.08 H Absolute Neuts (auto) 8.4 H Absolute Nucleated RBC 0.000 Nucleated RBC % (auto) 0.0 PT 10.4 L INR 0.9 Anion Gap 20 Estim Creat Clear Calc 15.3 Estimated GFR 33 Random Glucose 119 H Calcium 10.5 H Magnesium 2.1 Total Bilirubin 0.6 AST 83 H ALT 56 H Alkaline Phosphatase 87 Total Creatine Kinase 1446 H Troponin I High Sens 207.3 H* 148.0 H* Total Protein 7.4 Albumin 4.1 Assessment and Plan (1) Closed right hip fracture: Status: Acute Plan 83F who does not follow with PCP, no listed PMH presented s/p fall, found to be hypertensive, cachexic, emphysema on imaging, RLE severe PVD, AAA, rib fracture, and right femoral neck fracture fall complicated by right hip fracture follow up ortho, patient moderate to high risk for moderate risk procedure Mild acute rhabdomyolysis IV fluids Elevated troponin Likely demand ischemia from hypertension Echo Hypertensive urgency Improved, continue amlodipine, monitor AAA Outpatient follow-up Right lower extremity peripheral vascular disease Vascular eval Elevated creatinine Unclear if CKD 3 versus LYDIA, monitor Severe protein calorie malnutrition Encourage p.o. intake COPD with hypoxia Suspect hypoxia chronic, O2 for goal of 90% DVT prophylaxis mechanical due to pending surgery DNR/DNI reason for continued hospitalization: Surgery pending Quality Stroke Does the patient have a stroke diagnosis?: No VTE Prior VTE?: No VTE Risk Level:: Medical - moderate - high VTE Device Contraindication: N/A - Device Ordered VTE Drug Contraindication: Treatment Not Indicated
[2024-01-03 11:53] VITALS: RESP 18
[2024-01-03] MEDS: Morphine Sulfate 2 MG/ML CARTRIDGE IVPUSH ×2 (11:53→21:21)
[2024-01-03] MEDS: Acetaminophen 325 MG TABLET 650 MG PO (13:11)
[2024-01-03 14:40] LABS: Anion Gap 16 (12-20); Blood Urea Nitrogen 35 mg/dL (9-16); Calcium 9.6 mg/dL (8.4-10.2); Carbon Dioxide 25 mmol/L (22-29); Chloride 102 mmol/L (96-108); Creatinine Clr Calc Pharmacy 19.2; Estimated Glomerular Filt Rate 43; Glucose Random 291 mg/dL (60-115); Potassium 5.4 mmol/L (3.3-5.1); Sodium 138 mmol/L (135-145)
[2024-01-03 15:22] LABS: Estimated Average Glucose 128 mg/dL; Hemoglobin A1C 150.6887 umol/L; Hemoglobin A1c % 6.1 % (<6.0); Total Hemoglobin (HGBA1C) 3534.9138 umol/L
[2024-01-03 18:13] VITALS: BP 160/70; PULSE 65; RESP 18; TEMP 36.8; O2SAT 92
[2024-01-03 19:38] VITALS: BP 160/70; PULSE 68; RESP 17; TEMP 37; O2SAT 96
[2024-01-04] VITALS (12 sets, daily range): BP systolic 127–195; BP diastolic 69–97; PULSE 55–69; RESP 14–20; TEMP 36.3–37.1; O2SAT 78–100; BMI 12.5
[2024-01-04] MEDS: Morphine Sulfate 2 MG/ML CARTRIDGE IVPUSH ×2 (01:21→11:29)
[2024-01-04] MEDS: 0.9 % Sodium Chloride Flush 3 ML SYRINGE IVFLUSH ×3 (01:22→22:01)
--- NOTE | 2024-01-04 07:00 | CA_ITS ---
Transthoracic Echocardiogram Patient (Last, First, Middle): Soumya Watkins, Gender: Female Date of : 1940 Age: 83 Procedure Date: 01/04/2024 Procedure Type: Transthoracic Echocardiogram [place] [facility] [place]: 165.1 cm Weight: 34.02 kg BSA: 1.30 m2 Heart Rate: 56 bpm BP: 187 / 97 mmHg Supervisor Coating: Referring MD: Andres Dodson MD Symptoms: troponemia, htn Study Quality: Adequate ECG Rhythm: Sinus Conclusions: - Normal left ventricular size and systolic function. There is mildly increased left ventricular wall thickness. The visually estimated ejection fraction is between 55-60%. - E/E prime ratio is between 8 and 15 consistent with indeterminate filling pressures. - Mildly increased right ventricular cavity size. There is normal right ventricular systolic function. - There is mild to moderate mitral valve regurgitation. - Mild pulmonary hypertension is present. Findings Left Ventricle Normal left ventricular size and systolic function. There is mildly increased left ventricular wall thickness. The visually estimated ejection fraction is between 55-60%. There is no evidence of regional wall motion abnormalities. Abnormal diastolic function is noted. Spectral Doppler is indicative of an impaired relaxation filling pattern. E/E prime ratio is between 8 and 15 consistent with indeterminate filling pressures. Right Ventricle Mildly increased right ventricular cavity size. There is normal right ventricular systolic function. Atria The left atrium is normal in size. Aortic Valve There is a normal trileaflet aortic valve. There is no aortic valve stenosis. There is trace (trivial) aortic valve regurgitation. Mitral Valve The mitral valve appears normal. There is mild to moderate mitral valve regurgitation. There is no mitral valve stenosis. Pulmonic Valve Normal pulmonic valve structure and function. There is trace pulmonic valve regurgitation. Tricuspid Valve Normal tricuspid valve structure. There is no tricuspid valve regurgitation. The right ventricular systolic pressure is 39 mmHg. Normal right atrial pressure. Mild pulmonary hypertension is present. Great Vessels All visible segments of the aorta are normal in size. Venous The inferior vena cava is normal in size and collapses greater than 50% with inspiration. Pericardium/Pleural Prominent epicardial adipose tissue noted. There is no evidence of pericardial effusion. Prior Study Comparison No prior study available for comparison. Measurements 2D Linear Measurements IVSd: 1.15 0.6-0.9/0.6-1.0 cm LVIDd: 3.13 3.9-5.3/4.2-5.9 cm LVIDd Index: 2.41 2.4-3.2/2.2-3.1 cm/m2 LVIDs: 2.06 2.0-3.6 cm LVPWd: 1.07 0.7-1.1 cm Ao Root: 2.70 2.1-3.5 cm LA Diam: 2.20 2.7-3.8/3.0-4.0 cm LAIDs Index: 1.69 1.5-2.3 cm/m2 LV Mass: 127.36 67-162/88-224 g LV Mass Index: 97.97 43-95/49-115 g/m2 LVOT Diam: 2.00 3.0+(-)1.3 cm Mitral Valve MV Pk E: 0.57 MV PK A: 0.91 MV Decel Time: 184.00 E/A: 0.60 E'Lateral: 4.57 E'Medial: 4.57 E/E' Med: 12.60 E/E' Lat: 12.60 PHT: 54.00 MVA PHT: 4.07 Decel Cuming: 3.11 Aortic Valve AoV Pk Thomas: 1.27 AoV Mn Thomas: 0.76 AoV VTI: 0.30 AoV Pk Grad: 6.00 Aov Mn Grad: 3.00 MIROSLAVA Cont.VTI: 2.40 LVOT LVOT Pk Thomas: 0.74 LVOT Mn Thomas: 0.47 LVOT VTI: 0.23 LVOT Pk Grad: 2.00 LVOT Mn Grad: 1.00 LVOT Diam: 2.00 LVOT Area: 3.14 Diastolic Function MV Pk E: 0.57 MV Pk A: 0.91 E/A: 0.60 E'Medial: 4.57 E/E' Med: 12.60 E' Laterial: 4.57 E/E' Lat: 12.60 Right Ventricle TAPSE (mm): 17.00 TVS' Thomas: 14.00 Tricuspid Valve TR Pk Thomas: 3.01 TR Pk Grad: 36.00 RA Press: 3.00 RVSP: 39.00 Great Vessels Aorta Ao Root-2D: 2.70 2.0-3.7 cm Ao Asc: 2.60 2.1-3.4 cm Pulmonary Valve PV Pk Thomas: 0.74 Peak PV Grad: 2.00 Updated in Other Vendor System with Status of Final Lavon Vargas MD electronically signed on 01/04/2024 12:15:11 PM with status of Final
[2024-01-04 08:06] LABS: Hematocrit 40.8 % (37.0-47.0); Hemoglobin 13.2 g/dl (12.0-16.0); Mean Corpuscular HGB Conc 32.4 g/dl (31.0-35.0); Mean Corpuscular Hemoglobin 30.8 pg (27.0-33.0); Mean Corpuscular Volume 95.3 fL (80.0-98.0); Mean Platelet Volume 9.3 fL (9.4-12.3); Platelet Count 617 X10*3/uL (160-400); Red Blood Count 4.28 X10*6/uL (4.20-5.50); Red Cell Distribution Width 14.5 % (11.0-16.0)
[2024-01-04 08:25] LABS: Anion Gap 14 (12-20); Blood Urea Nitrogen 55 mg/dL (9-16); Calcium 9.2 mg/dL (8.4-10.2); Carbon Dioxide 26 mmol/L (22-29); Chloride 104 mmol/L (96-108); Cholesterol 179 mg/dL (<200); Estimated Glomerular Filt Rate 51; Glucose Fasting 100 mg/dL (60-99); Glucose Random 99 mg/dL (60-115); HDL Cholesterol 69 mg/dL (>40); LDL Cholesterol Calculated 90 mg/dL (<100); Potassium 5.1 mmol/L (3.3-5.1); Sodium 139 mmol/L (135-145); Triglycerides 100 mg/dL (<150)
[2024-01-04] MEDS: amLODIPine Besylate 5 MG TABLET PO (09:41)
--- NOTE | 2024-01-04 09:54 | P.PNIM_ITS ---
Subjective Subjective Date of Service: 01/04/24 Interval History: pain controlled Physical Exam 2 Vital Signs: Vital Signs: Last Vital Signs Temp 98.2 F 01/04/24 07:35 Pulse 55 01/04/24 07:35 Resp 20 01/04/24 07:35 BP 155/72 H 01/04/24 07:35 Pulse Ox 97 01/04/24 07:35 O2 Del Method Nasal Cannula 01/04/24 07:35 O2 Flow Rate 3 01/04/24 07:35 BMI result Body Mass Index 12.5 General: AO X 3, no acute distress, frail appearing, cechexic Resp: diminished bilateral, no accessory muscles used CVS: S1,S2,RRR GI: soft, non tender, non distended Neuro: motor grossly intact, alert Psych: appropriate affect, appropriate insight Objective Data Active Medications Acetaminophen (Acetaminophen 325 Mg Tablet) 650 mg PO Q6H PRN PRN Reason: Pain, Mild (Pain Scale 1-3), fever or headache Last Admin: 01/03/24 13:11 Dose: 650 mg Documented By: SERAMOMAYO Amlodipine Besylate (Amlodipine Besylate 5 Mg Tablet) 5 mg PO DAILY [facility]; Protocol Last Admin: 01/04/24 09:41 Dose: 5 mg Documented By: MINDY Benzonatate (Benzonatate 100 Mg Capsule) 100 mg PO TID PRN PRN Reason: Cough Calcium Carbonate (Calcium Carbonate 750 Mg Tab.Chew) 750 mg PO Q4H PRN PRN Reason: Heartburn Labetalol HCl (Labetalol Hcl 100 Mg/20 Ml Vial) 5 mg IVPUSH ONCE PRN PRN Reason: SBP >200 Magnesium Hydroxide (Milk Of Magnesia 30 Ml Oral.Susp) 30 ml PO DAILY PRN PRN Reason: Constipation Melatonin (Melatonin 3 Mg Tablet) 6 mg PO BEDTIME PRN PRN Reason: Insomnia Morphine Sulfate (Morphine Sulfate 2 Mg/Ml Cartridge) 2 mg IVPUSH Q4H PRN; Protocol PRN Reason: Pain, Severe (Pain Scale 7-10) Last Admin: 01/04/24 01:21 Dose: 2 mg Documented By: RANDY Nicotine (Nicotine 21 Mg Patch.Td24) 21 mg TRANSDERMA DAILY [facility] Last Admin: 01/04/24 09:41 Dose: Not Given Documented By: MINDY Non-Admin Reason: Patient Refused Ondansetron HCl (Ondansetron Hcl 4 Mg/2 Ml Vial) 4 mg IVPUSH Q8H PRN PRN Reason: Nausea and Vomiting Sodium Chloride (0.9 % Sodium Chloride Flush 3 Ml Syringe) 3 ml IVFLUSH QSHIFT [facility] Last Admin: 01/04/24 09:41 Dose: 3 ml Documented By: MINDY Labs 01/04/24 05:30 01/04/24 05:30 Labs: Laboratory Results - last 24 hr 01/03/24 01/03/24 01/04/24 14:15 14:17 05:30 MCV 95.3 MCH 30.8 MCHC 32.4 RDW 14.5 Plt Count 617 H MPV 9.3 L Absolute Nucleated RBC 0.000 Nucleated RBC % (auto) 0.0 Hold Purple Top SEE NOTE Anion Gap 16 14 Estim Creat Clear Calc 19.2 22.0 Estimated GFR 43 51 Random Glucose 291 H 99 Fasting Glucose 100 H Estimat Average Glucose 128 Hemoglobin A1c % 6.1 H Calcium 9.6 D 9.2 Total Creatine Kinase 804 H 1491 H Triglycerides 100 Cholesterol 179 LDL Cholesterol, Calc 90 HDL Cholesterol 69 Assessment and Plan (1) Closed right hip fracture: Status: Acute Plan 83F who does not follow with PCP, no listed PMH presented s/p fall, found to be hypertensive, cachexic, emphysema on imaging, RLE severe PVD, AAA, rib fracture, and right femoral neck fracture fall complicated by right hip fracture plan for OR today patient moderate to high risk for moderate risk procedure Mild acute rhabdomyolysis resolved with iv fluids Elevated troponin Likely demand ischemia from hypertension Echo, cardio eval Hypertensive urgency Improved, continue amlodipine, monitor AAA Outpatient follow-up Right lower extremity peripheral vascular disease Vascular eval (d/w vascular can be done post surgery) Elevated creatinine LYDIA on CKD III improved preDM with hyperglycemia a1c 6.1 improved Severe protein calorie malnutrition Encourage p.o. intake COPD with hypoxia Suspect hypoxia chronic, O2 for goal of 90% DVT prophylaxis mechanical due to pending surgery DNR/DNI reason for continued hospitalization: Surgery pending Quality Stroke Does the patient have a stroke diagnosis?: No VTE Prior VTE?: No VTE Risk Level:: Medical - moderate - high VTE Device Contraindication: N/A - Device Ordered VTE Drug Contraindication: Treatment Not Indicated
--- NOTE | 2024-01-04 10:48 | MHC.CLN ---
RE: CONSULT PT IS SEVERELY MALNOURISHED PT WITH MODERATELY DEPLETED SUBCUTANEOUS FAT AND MUSCLE MASS WITH BMI 12 AND CHRONIC POOR PO INTAKE CONSUMING 1-2 MEALS PER DAY AND BOOST AT HOME. CURRENTLY NPO WHEN DIET TO ADVANCE, RECOMMEND ADDING ENSURE BID TO INCREASE KCALS SUPP TO PROVIDE 700KCALS, 40G PROTEIN MONITOR FOR DIET ADVANCEMENT SEE ALSO FULL CLINICAL NUTRITION ASSESSMENT
--- NOTE | 2024-01-04 11:41 | MHC.CM.PN ---
EMR REVIEWED, CM MET W/PT AND DTR AT BEDSIDE, PT'S DTR WAITING FOR CARDIO TO DETERMINE WHETHER THEY WILL CLEAR PT FOR SURGERY, DTR DOES REPORT THAT FAMILY WOULD LIKE PT TO GO TO A SNF IN [facility] FAMILY IS HERE AND THEY WOULD LIKE TO BE ABLE TO GET TO FACILITY IF PT HAD ANY EMERGENCIES, REF TO BE PLACED TO [facility] AND PREFERRED SNF IS [facility], CM WILL CONT TO FOLLOW DC NEEDS.
--- NOTE | 2024-01-04 12:07 | P.CONGS_ITS ---
<Statement entered by Donaldo Suarez MD - 01/05/24 14:35> I have seen and evaluated the patient and agree with history, findings, assessment and plan documented by Daphne Bertrand PA-c. I did have an extensive discussion with the family regarding her overall condition. First she will need to establish primary care in addition to a cardiology evaluation prior to any sort of intervention on that right lower extremity. She has severe peripheral vascular disease. This appears to be all chronic. Hip surgery appears to have gone well. She will follow up with us as an outpatient if she does wish to go forward. This was all discussed in detail with the patient's daughter and who was at bedside. Thank you for allowing us to assist in her care. History of Present Illness Consult details Consult date: 01/04/24 Narrative: We are consulted for Soumya, a pleasant 83-year-old female, for concerns of PVD. She presented to the ER this weekend s/p multiple falls at home. She was found to have a fx right femoral head. She was found to have severe PVD with monophasic flow throughout the RLE. She has not been to a physician in >30 years. She has a significant smoking hx, smoking >70y, down to appx 1/2 ppd now. She is not on ASA or any blood thinners. She does not know how long her right foot has been discolored; however, she states that is more painful than her hip. She is possibly having surgery today for fixation of the right femoral head. She will be getting an Echo and blood work prior. Review of Systems 2 Constitutional: Constitutional: Reports as per HPI and Denies weakness ENT: Reports Normal hearing present and Denies dizziness Cardiovascular: Cardiovascular: Reports as per HPI, Denies chest pain, Denies chest pain at rest, Denies chest pain with activity, Denies dyspnea and Denies dyspnea on exertion Respiratory: Respiratory: Reports as per HPI, Denies cough, Denies dyspnea and Denies dyspnea on exertion Gastrointestinal: Gastrointestinal: Reports as per HPI, Denies abdominal pain, Denies nausea and Denies vomiting Musculoskeletal: Musculoskeletal: Denies numbness Integumentary/Breasts: Skin/Breast: Reports as per HPI, Denies erythema and Denies wounds Neurologic: Reports Normal hearing present, Denies dizziness, Denies numbness, Denies Sensory deficit (Neuro) and Denies weakness Psychiatric: Psychiatric: Reports no additional psychiatric complaints Endocrine: Endocrine: Reports no additional endocrine complaints PMFSH Social History Social History Household Members: Spouse and Children Household Members Other:: lives with / children live in same home downstairs Housing: House Do you presently have visiting nurse or other home services: No Patient Tobacco Use Status: Current everyday Tobacco user Tobacco use type: Cigarette Cigarette Packs Per Day: 0.5 Cigarettes Per Day: 10.0 Years Smoked: 70 Smoked in Last 30 Days: Yes Patient Interested in Nicotine Replacement: Yes Patient Given Instructions on How to Stop Smoking: Yes Date Education Initiated: 01/02/24 Second Hand Smoke Exposure: Yes Use of substances other than those prescribed or required for medical reasons: No Currently Displaying Signs/Symptoms of Drug Intoxication Withdrawal: No Have you been hit, kicked, punched, or otherwise hurt by someone within the past year? If so, by whom?: No Do you feel safe in your current relationship?: No Is there a partner from a previous relationship who is making you feel unsafe now?: No Are you made to feel afraid or neglected: No Advance Directives: No Advance Directives Information Provided: Yes Advance Directives on File: Yes Advance Directives Date on File: 01/02/24 Do you have a plan to hurt others: No Plan Recently lost weight without trying: Yes How much weight loss: Unsure Eating poorly because of decreased appetite: Yes Nutrition screen score: 5 Nutrition Risks: No Nutritional Risk Patient : No : No Poor oral hygiene: No service: No Meds Allergies Allergy/AdvReac Type Severity Reaction Status Date / Time Sulfa (Sulfonamide Allergy Unknown Verified 01/02/24 14:19 Antibiotics) Active Medications: Current Medications Acetaminophen (Acetaminophen 325 Mg Tablet) 650 mg PO Q6H PRN PRN Reason: Pain, Mild (Pain Scale 1-3), fever or headache Last Admin: 01/03/24 13:11 Dose: 650 mg Amlodipine Besylate (Amlodipine Besylate 5 Mg Tablet) 5 mg PO DAILY [facility]; Protocol Last Admin: 01/04/24 09:41 Dose: 5 mg Benzonatate (Benzonatate 100 Mg Capsule) 100 mg PO TID PRN PRN Reason: Cough Calcium Carbonate (Calcium Carbonate 750 Mg Tab.Chew) 750 mg PO Q4H PRN PRN Reason: Heartburn Labetalol HCl (Labetalol Hcl 100 Mg/20 Ml Vial) 5 mg IVPUSH ONCE PRN PRN Reason: SBP >200 Magnesium Hydroxide (Milk Of Magnesia 30 Ml Oral.Susp) 30 ml PO DAILY PRN PRN Reason: Constipation Melatonin (Melatonin 3 Mg Tablet) 6 mg PO BEDTIME PRN PRN Reason: Insomnia Morphine Sulfate (Morphine Sulfate 2 Mg/Ml Cartridge) 2 mg IVPUSH Q4H PRN; Protocol PRN Reason: Pain, Severe (Pain Scale 7-10) Last Admin: 01/04/24 11:29 Dose: 2 mg Nicotine (Nicotine 21 Mg Patch.Td24) 21 mg TRANSDERMA DAILY [facility] Last Admin: 01/04/24 09:41 Dose: Not Given Ondansetron HCl (Ondansetron Hcl 4 Mg/2 Ml Vial) 4 mg IVPUSH Q8H PRN PRN Reason: Nausea and Vomiting Sodium Chloride (0.9 % Sodium Chloride Flush 3 Ml Syringe) [facility] Last Admin: 01/04/24 09:41 Dose: 3 ml Home Medications ?Medication ?Instructions ?Recorded ?Confirmed ?Last Taken ?Type acetaminophen 500 mg tablet 500 mg PO Q6H PRN Pain 01/03/24 01/03/24 Unknown History Physical Exam 2 Vital Signs: Vital Signs: Last Vital Signs Temp 98.6 F 01/04/24 11:30 Pulse 66 01/04/24 11:30 Resp 18 01/04/24 11:30 BP 195/83 H 01/04/24 11:30 Pulse Ox 95 01/04/24 11:30 O2 Del Method Nasal Cannula 01/04/24 11:30 O2 Flow Rate 2 01/04/24 11:30 BMI result Body Mass Index 12.5 Const: General: comfortable and no acute distress O rientation/consciousness: patient oriented x3 HEENT: Ears: hearing grossly normal bilaterally Resp: Effort & Inspection: normal respiratory effort and able to speak in complete sentences Auscultation: clear to auscultation bilaterally Cardio: Rate: regular rate Rhythm: regular rhythm Heart sounds: S1 normal heart sound present and S2 normal heart sound present Bruits: no abdominal aortic bruits, no carotid bruits, no femoral bruits and no renal bruits GI: Palpation (GI): No Abdominal aortic bruit present Neuro: General: patient oriented x3 Cranial nerves: Yes Normal hearing present Sensory Exam: No Sensory deficit (Neuro) Extrem: Other: Right lower extremity/foot: No palpable DP/PT pulses. Deep erythema noted dorsally from the ankle to the tips of the toes R1-3: closed ulcerations/deeper erythema noted, just below the nail bed. Left lower extremity: Palpable DP pulses. No erythema noted, no ulcerations noted. Results Labs 01/04/24 05:30 01/04/24 05:30 Labs: Abnormal lab results 01/03/24 01/03/24 01/04/24 Range/Units 14:15 14:17 05:30 Plt Count 617 H (160-400) X10*3/uL MPV 9.3 L (9.4-12.3) fL Potassium 5.4 H (3.3-5.1) mmol/L BUN 35 H 55 H (9-16) mg/dL Random Glucose 291 H (60-115) mg/dL Fasting Glucose 100 H (60-99) mg/dL Hemoglobin A1c % 6.1 H (<6.0) % Total Creatine Kinase 804 H 1491 H (26-140) U/L Short CBC 01/04/24 Range/Units 05:30 WBC 10.0 (4.8-10.8) X10*3/uL Hgb 13.2 (12.0-16.0) g/dl Hct 40.8 (37.0-47.0) % Plt Count 617 H (160-400) X10*3/uL BMP 01/03/24 01/04/24 14:17 05:30 Sodium 138 139 Potassium 5.4 H 5.1 Chloride 102 104 Carbon Dioxide 25 26 BUN 35 H 55 H Creatinine 1.19 1.04 Calcium 9.6 D 9.2 Cardiac Enzymes 01/03/24 01/04/24 Range/Units 14:17 05:30 Total Creatine Kinase 804 H 1491 H (26-140) U/L All other labs normal. Assessment and Plan (1) PVD (peripheral vascular disease): Status: Acute Plan We were consulted for Soumya, a pleasant 83yo female, due to PVD concerns. We reviewed the US from 01/01, which revealed significant PVD with monophasic flow throughout the RLE. We reviewed the ultrasound results from the . Upon physical exam her foot is a deep erythematous color with no palpable pulses. Patient does endorse pain in that foot. Due to the patient having a possible hip surgery today, there there is no acute vascular surgery intervention. We will continue to monitor. We will monitor the outcome of the upcoming surgery and proceed with treatment options after that. She was also found to have a AAA, an incidental finding on CT, that is 5.2 cm x 3.9 cm; we will follow this in the outpatient setting. If there are any questions or concerns please do not hesitate to reach out to us. Procedures Date of Service Date of Service: 01/04/24
--- NOTE | 2024-01-04 12:15 | P.CONCA_ITS ---
History of Present Illness History of Present Illness Date of Service: 01/04/24 Requesting physician: Andres Dodson Chief complaint: right hip fracture, + trop, preop assessment Narrative: 83-year-old female presenting with mechanical fall and neck of femur fracture. We have been asked to see her for perioperative cardiovascular risk assessment. She has mildly elevated troponin levels and high sensitivity troponin level to 0 7 and 148. She has mildly elevated creatinine kinase which is thought to be due to rhabdomyolysis. Creatinine is stable. She is complaining of right foot pain. It appears she has peripheral vascular disease and previous duplex scan of the lower extremity has shown monophasic flow throughout the right lower extremity. CTA abdomen has also shown an infrarenal abdominal aortic aneurysm with dimensions of 5.2 X 3.9 cm. She has severe emphysema. She is complaining of right foot pain. Denying any chest pain or shortness of breath. Blood pressure was significantly elevated on admission and she has not been on any antihypertensive medicines. ECG showing sinus rhythm at 76 beats per minute, left axis deviation, premature atrial complexes, anteroseptal infarct. ECHO showing no wall motion abnormalities with normal ejection fraction of 55-60 and mild pulmonary hypertension [facility] Social History Social History Household Members: Spouse and Children Household Members Other:: lives with / children live in same home downstairs Housing: House Do you presently have visiting nurse or other home services: No Patient Tobacco Use Status: Current everyday Tobacco user Tobacco use type: Cigarette Cigarette Packs Per Day: 0.5 Cigarettes Per Day: 10.0 Years Smoked: 70 Smoked in Last 30 Days: Yes Patient Interested in Nicotine Replacement: Yes Patient Given Instructions on How to Stop Smoking: Yes Date Education Initiated: 01/02/24 Second Hand Smoke Exposure: Yes Use of substances other than those prescribed or required for medical reasons: No Currently Displaying Signs/Symptoms of Drug Intoxication Withdrawal: No Have you been hit, kicked, punched, or otherwise hurt by someone within the past year? If so, by whom?: No Do you feel safe in your current relationship?: No Is there a partner from a previous relationship who is making you feel unsafe now?: No Are you made to feel afraid or neglected: No Advance Directives: No Advance Directives Information Provided: Yes Advance Directives on File: Yes Advance Directives Date on File: 01/02/24 Do you have a plan to hurt others: No Plan Recently lost weight without trying: Yes How much weight loss: Unsure Eating poorly because of decreased appetite: Yes Nutrition screen score: 5 Nutrition Risks: No Nutritional Risk Patient : No : No Poor oral hygiene: No service: No Meds Allergies Allergy/AdvReac Type Severity Reaction Status Date / Time Sulfa (Sulfonamide Allergy Unknown Verified 01/02/24 14:19 Antibiotics) Active Medications: Current Medications Acetaminophen (Acetaminophen 325 Mg Tablet) 650 mg PO Q6H PRN PRN Reason: Pain, Mild (Pain Scale 1-3), fever or headache Last Admin: 01/03/24 13:11 Dose: 650 mg Amlodipine Besylate (Amlodipine Besylate 5 Mg Tablet) 5 mg PO DAILY [facility]; Protocol Last Admin: 01/04/24 09:41 Dose: 5 mg Benzonatate (Benzonatate 100 Mg Capsule) 100 mg PO TID PRN PRN Reason: Cough Calcium Carbonate (Calcium Carbonate 750 Mg Tab.Chew) 750 mg PO Q4H PRN PRN Reason: Heartburn Labetalol HCl (Labetalol Hcl 100 Mg/20 Ml Vial) 5 mg IVPUSH ONCE PRN PRN Reason: SBP >200 Magnesium Hydroxide (Milk Of Magnesia 30 Ml Oral.Susp) 30 ml PO DAILY PRN PRN Reason: Constipation Melatonin (Melatonin 3 Mg Tablet) 6 mg PO BEDTIME PRN PRN Reason: Insomnia Morphine Sulfate (Morphine Sulfate 2 Mg/Ml Cartridge) 2 mg IVPUSH Q4H PRN; Protocol PRN Reason: Pain, Severe (Pain Scale 7-10) Last Admin: 01/04/24 11:29 Dose: 2 mg Nicotine (Nicotine 21 Mg Patch.Td24) 21 mg TRANSDERMA DAILY [facility] Last Admin: 01/04/24 09:41 Dose: Not Given Ondansetron HCl (Ondansetron Hcl 4 Mg/2 Ml Vial) 4 mg IVPUSH Q8H PRN PRN Reason: Nausea and Vomiting Sodium Chloride (0.9 % Sodium Chloride Flush 3 Ml Syringe) 3 ml IVFLUSH QSHIFT [facility] Last Admin: 01/04/24 09:41 Dose: 3 ml Home Medications ?Medication ?Instructions ?Recorded ?Confirmed ?Last Taken ?Type acetaminophen 500 mg tablet 500 mg PO Q6H PRN Pain 01/03/24 01/03/24 Unknown History Physical Exam 2 Vital Signs: Vital Signs: Last Vital Signs Temp 98.6 F 01/04/24 11:30 Pulse 66 01/04/24 11:30 Resp 18 01/04/24 11:30 BP 195/83 H 01/04/24 11:30 Pulse Ox 95 01/04/24 11:30 O2 Del Method Nasal Cannula 01/04/24 11:30 O2 Flow Rate 2 01/04/24 11:30 BMI result Body Mass Index 12.5 GENERAL APPEARANCE: Complaining of right foot pain. NECK: no carotid bruit, no jugular venous distention. SKIN: no suspicious lesions, warm and dry. HEART: no murmurs, regular rate and rhythm. LUNGS: clear to auscultation bilaterally. ABDOMEN: soft, nontender. EXTREMITIES: no edema. Right lower extremity is shortened and externally rotated. NEUROLOGIC: No gross deficits, AAO X 3 Objective Labs and Meds 01/04/24 05:30 01/04/24 05:30 Lab results: Laboratory Results - last 24 hr 01/03/24 01/03/24 01/04/24 14:15 14:17 05:30 WBC 10.0 RBC 4.28 Hgb 13.2 Hct 40.8 MCV 95.3 MCH 30.8 MCHC 32.4 RDW 14.5 Plt Count 617 H MPV 9.3 L Absolute Nucleated RBC 0.000 Nucleated RBC % (auto) 0.0 Hold Purple Top SEE NOTE Sodium 138 139 Potassium 5.4 H 5.1 Chloride 102 104 Carbon Dioxide 25 26 Anion Gap 16 14 BUN 35 H 55 H Creatinine 1.19 1.04 Estim Creat Clear Calc 19.2 22.0 Estimated GFR 43 51 Random Glucose 291 H 99 Fasting Glucose 100 H Estimat Average Glucose 128 Hemoglobin A1c % 6.1 H Calcium 9.6 D 9.2 Total Creatine Kinase 804 H 1491 H Triglycerides 100 Cholesterol 179 LDL Cholesterol, Calc 90 HDL Cholesterol 69 Assessment and Plan (1) PVD (peripheral vascular disease): Status: Acute (2) Hypertension: Status: Acute (3) Preop cardiovascular exam: Status: Acute Plan 83 year female who is here with mechanical fall and right neck of femur fracture. She had significantly elevated blood pressures on admission with mild elevation in troponin. No dynamic EKG changes noted. ECHO is not showing any wall motion abnormalities of previous CT. mild pulmonary hypertension is seen. Blood pressure improved somewhat with amlodipine but again is elevated. She is also in pain. Overall, she is intermediate risk for perioperative complications. I had a detailed discussion with the daughter that hip fractures are quite challenging and if not treated it can lead to significant morbidity in the future. Can change amlodipine 5 mg twice a day. As she goes to OR and improves we can reassess the blood pressure and adjust medications. Mild troponin elevation is due to significantly elevated blood pressures and is a type 2 event. Not a true ACS event. Thank you for allowing me to participate in the care of your patient. Please feel free to contact me if you have any questions. Procedures Date of Service Date of Service: 01/04/24
--- NOTE | 2024-01-04 13:10 | PC.NURSE ---
received report from night nurse that there is no pedal pulses on the right foot. Per report RN stated that MD us aware that's the reason pt has Vascular consult . On assessment right foot cold to touch , no pedal or post tibial pulses via doppler , made cardiology aware , Dr Dodson is aware and per medicine team the Vascular MD is aware too
--- NOTE | 2024-01-04 13:18 | PC.NURSE ---
report to preop RN given , pt was transfered to preop for right hip surgery
--- NOTE | 2024-01-04 14:18 | PC.NURSE ---
emptied for 400ml of yellow urine
--- NOTE | 2024-01-04 15:08 | HO.ANESPROP2 ---
[facility] Active Problems Active Problems: All Active Problems Preop cardiovascular exam (Acute) PVD (peripheral vascular disease) (Acute) Closed fracture of neck of right femur (Acute) Closed right hip fracture (Acute) Hypertension (Acute) LYDIA (acute kidney injury) (Acute) Rhabdomyolysis (Acute) Fall (Acute) Acute pain of right knee (Acute) Surgical History History of Problems with Anesthesia: No Social History Social History Household Members: Spouse and Children Household Members Other:: lives with / children live in same home downstairs Housing: House Do you presently have visiting nurse or other home services: No Patient Tobacco Use Status: Current everyday Tobacco user Tobacco use type: Cigarette Cigarette Packs Per Day: 0.5 Cigarettes Per Day: 10.0 Years Smoked: 70 Smoked in Last 30 Days: Yes Patient Interested in Nicotine Replacement: Yes Patient Given Instructions on How to Stop Smoking: Yes Date Education Initiated: 01/02/24 Second Hand Smoke Exposure: Yes Use of substances other than those prescribed or required for medical reasons: No Currently Displaying Signs/Symptoms of Drug Intoxication Withdrawal: No Have you been hit, kicked, punched, or otherwise hurt by someone within the past year? If so, by whom?: No Do you feel safe in your current relationship?: No Is there a partner from a previous relationship who is making you feel unsafe now?: No Are you made to feel afraid or neglected: No Are you DNR?: Yes Advance Directives: No Advance Directives Information Provided: Yes Advance Directives on File: Yes Advance Directives Date on File: 01/02/24 Do you have a plan to hurt others: No Plan Recently lost weight without trying: Unsure How much weight loss: Unsure Eating poorly because of decreased appetite: Yes Nutrition screen score: 5 Nutrition Risks: No Nutritional Risk Patient : No : No Poor oral hygiene: No service: No Meds Allergies Allergy/AdvReac Type Severity Reaction Status Date / Time Sulfa (Sulfonamide Allergy Unknown Verified 01/02/24 14:19 Antibiotics) Active Medications: Current Medications Acetaminophen (Acetaminophen 325 Mg Tablet) 650 mg PO Q6H PRN PRN Reason: Pain, Mild (Pain Scale 1-3), fever or headache Last Admin: 01/03/24 13:11 Dose: 650 mg Amlodipine Besylate (Amlodipine Besylate 5 Mg Tablet) 5 mg PO DAILY [facility]; Protocol Last Admin: 01/04/24 09:41 Dose: 5 mg Benzonatate (Benzonatate 100 Mg Capsule) 100 mg PO TID PRN PRN Reason: Cough Calcium Carbonate (Calcium Carbonate 750 Mg Tab.Chew) 750 mg PO Q4H PRN PRN Reason: Heartburn Labetalol HCl (Labetalol Hcl 100 Mg/20 Ml Vial) 5 mg IVPUSH ONCE PRN PRN Reason: SBP >200 Magnesium Hydroxide (Milk Of Magnesia 30 Ml Oral.Susp) 30 ml PO DAILY PRN PRN Reason: Constipation Melatonin (Melatonin 3 Mg Tablet) 6 mg PO BEDTIME PRN PRN Reason: Insomnia Morphine Sulfate (Morphine Sulfate 2 Mg/Ml Cartridge) 2 mg IVPUSH Q4H PRN; Protocol PRN Reason: Pain, Severe (Pain Scale 7-10) Last Admin: 01/04/24 11:29 Dose: 2 mg Nicotine (Nicotine 21 Mg Patch.Td24) 21 mg TRANSDERMA DAILY [facility] Last Admin: 01/04/24 09:41 Dose: Not Given Ondansetron HCl (Ondansetron Hcl 4 Mg/2 Ml Vial) 4 mg IVPUSH Q8H PRN PRN Reason: Nausea and Vomiting Sodium Chloride (0.9 % Sodium Chloride Flush 3 Ml Syringe) [facility] Last Admin: 01/04/24 09:41 Dose: 3 ml Home Medications ?Medication ?Instructions ?Recorded ?Confirmed ?Last Taken ?Type acetaminophen 500 mg tablet 500 mg PO Q6H PRN Pain 01/03/24 01/03/24 Unknown History Exam Height,Weight and Vital Signs: Height 5 ft 5 in Weight 34.1 kg Last Vital Signs Temp 98.5 F 01/04/24 13:39 Pulse 63 01/04/24 13:39 Resp 18 01/04/24 13:39 BP 127/70 01/04/24 13:39 Pulse Ox 94 01/04/24 13:39 O2 Del Method Nasal Cannula 01/04/24 13:39 O2 Flow Rate 2 01/04/24 13:39 Pertinent Lab Results Pertinent Lab Results: Laboratory Tests 01/02/24 01/02/24 01/02/24 14:57 15:25 19:16 WBC 9.9 RBC 4.91 Hgb 15.0 Hct 46.0 MCV 93.7 MCH 30.5 MCHC 32.6 RDW 14.4 Plt Count 659 H MPV 8.9 L Immature Gran % (Auto) 0.8 H Neut % (Auto) 84.6 H Lymph % (Auto) 5.0 L [place] % (Auto) 9.2 Eos % (Auto) 0.1 Baso % (Auto) 0.3 Lymph # (Auto) 0.5 L [place] # (Auto) 0.9 Eos # (Auto) 0.0 Baso # (Auto) 0.0 Abs Immat Gran (auto) 0.08 H Absolute Neuts (auto) 8.4 H Absolute Nucleated RBC 0.000 Nucleated RBC % (auto) 0.0 Hold Purple Top PT 10.4 L INR 0.9 Sodium 143 Potassium 5.1 Chloride 100 Carbon Dioxide 28 Anion Gap 20 BUN 47 H Creatinine 1.49 H Estim Creat Clear Calc 15.3 Estimated GFR 33 Random Glucose 119 H Fasting Glucose Estimat Average Glucose Hemoglobin A1c % Calcium 10.5 H Magnesium 2.1 Total Bilirubin 0.6 AST 83 H ALT 56 H Alkaline Phosphatase 87 Total Creatine Kinase 1446 H Troponin I High Sens 207.3 H* 148.0 H* Total Protein 7.4 Albumin 4.1 Triglycerides Cholesterol LDL Cholesterol, Calc HDL Cholesterol 01/03/24 01/03/24 01/04/24 14:15 14:17 05:30 WBC 10.0 RBC 4.28 Hgb 13.2 Hct 40.8 MCV 95.3 MCH 30.8 MCHC 32.4 RDW 14.5 Plt Count 617 H MPV 9.3 L Immature Gran % (Auto) Neut % (Auto) Lymph % (Auto) [place] % (Auto) Eos % (Auto) Baso % (Auto) Lymph # (Auto) [place] # (Auto) Eos # (Auto) Baso # (Auto) Abs Immat Gran (auto) Absolute Neuts (auto) Absolute Nucleated RBC 0.000 Nucleated RBC % (auto) 0.0 Hold Purple Top SEE NOTE PT INR Sodium 138 139 Potassium 5.4 H 5.1 Chloride 102 104 Carbon Dioxide 25 26 Anion Gap 16 14 BUN 35 H 55 H Creatinine 1.19 1.04 Estim Creat Clear Calc 19.2 22.0 Estimated GFR 43 51 Random Glucose 291 H 99 Fasting Glucose 100 H Estimat Average Glucose 128 Hemoglobin A1c % 6.1 H Calcium 9.6 D 9.2 Magnesium Total Bilirubin AST ALT Alkaline Phosphatase Total Creatine Kinase 804 H 1491 H Troponin I High Sens Total Protein Albumin Triglycerides 100 Cholesterol 179 LDL Cholesterol, Calc 90 HDL Cholesterol 69 Airway Mallampati Class: II TM Dist: >3cm Neck ROM: Limited Denture: Upper and Lower Loose/Missing/Broken Teeth: Yes, Upper and Lower Heart: RRR Lungs: distant BS Assessment and Plan Assessment Anesthesia Assessment: Anesthesia Plan Discussed and Chart Reviewed Final Anesthetic Review History of Problems with Anesthesia: No NPO: Yes ASA Class: IV Final Preanesthetic Review: Meds/Allgs Chart Reviewed, Consent Obtained/Reviewed and Anes Risks/Benef Reviewed Patient Risk: High Procedure Risk: Intermediate Anesthetic Plan Anesthetic Plan: GA Disposition: Standard PACU
--- NOTE | 2024-01-04 16:24 | PM.OP ---
Brief Operative Note Date of Service: 01/04/24 Pre-op diagnosis: Right hip displaced femoral neck fracture Post-op diagnosis: same Procedure: Right hip cemented bipolar hemiarthroplasty Implants: Lexy cemented bipolar hemiarthroplasty with an Accolade C cemented femoral stem size 2 with a 127 degree neck-shaft angle, a femoral head size 26 with a -3 mm neck, femoral shell size 43, distal centralizer size 11, a small cement plug Surgeon: Hu Mason MD Anesthesia: GETA Was an Lug Breaker And Wire Puller used for this Procedure?: No Estimated blood loss (mL): 100 Pathology: other (Right femoral head) Condition: stable Disposition: PACU
--- NOTE | 2024-01-04 16:25 | W.PM.OPN ---
Operative Note Operative Note Date of Service: 01/04/24 Narrative: After the patient was identified as Soumya Watkins and her right hip was initialed by myself the patient was brought to the operating room where general anesthesia was induced by the anesthesiologist in routine fashion. The patient was given 2 g of IV Ancef for infection prophylaxis. The patient was then gently rolled into the lateral position. An axillary roll was put into place. All bony prominences were well padded. The patient's pelvis was held securely with hip bolsters. The patient's right hip region and lower extremity were prepped and draped in sterile fashion. A #10 scalpel blade was then used to make a curvilinear incision centered over the greater trochanter. The subcutaneous tissues were dissected using electrocautery down to the fascia malick. The fascia malick was then split in line with the skin incision using electrocautery. The split in the fascia malick was curved posteriorly along its cephalad aspect to help prevent injury to the innervation of the tensor fascia malick muscle. The patient's leg was gently externally rotated. A lateral Christopher approach was then taken down to the anterior joint capsule. The anterior half of the vastus lateralis was split 1 cm from its insertion and tagged with #2 Ethibond suture. The anterior 1/3 of the gluteus medius incision was then split using electrocautery and tagged with #2 Ethibond suture. An anterior capsulectomy was then performed using electrocautery. The femoral neck fracture was identified. The patient's lower extremity was gently externally rotated. The femoral neck cut was made 1 cm proximal to the lesser trochanter. The femoral head was then removed using a corkscrew. The femoral head measured to be a size 43. The trial size 43 femoral head was put into the acetabulum. The trial fit well. The trial was removed. The acetabulum was irrigated with copious amounts of normal saline solution via pulse lavage. The patient's leg was then placed into a sterile pouch along the anterior aspect of the surgical suite table. Soft tissues were retracted around the proximal femur. A box cutting osteotome was used to make a groove in the medial aspect of the greater trochanter. Broaching was begun with a size 0 press-fit broach. Broaching was increased up to a size 2 cemented broach. The size 2 broach fit well. The broach was removed. The distal centralizer was measured to be a size 11. A small cement plug was put into place. The intramedullary canal was irrigated with copious amounts of normal saline solution via pulse lavage while the cement was mixed. Once the cement reached a doughy state it was pressurized into the intramedullary canal. The final implant was put into place. Once the cement had hardened a trial size 43 shell with a -3 mm neck was put into place. The hip was reduced. Leg lengths were clinically equal. The hip was taken through a full range of motion. There was no instability. The hip was dislocated and the patient's leg was placed into the sterile pouch. The trial head was removed. The wound was irrigated with copious amounts of normal saline solution via pulse lavage. The final head and shell were impacted in the place. Leg lengths were clinically equal. Hip was taken through a full range of motion. There was no instability. The patient's leg was then placed onto a well-padded Alejandro stand. The wound was once again irrigated. The vastus lateralis and tensor fascia malick tendons were repaired with #2 Ethibond [id number] interrupted suture. The wound was once again irrigated. The fascia malick was closed with #2 Ethibond [id number] interrupted suture as well as #1 Vicryl [id number] interrupted suture. The wound was once again irrigated. The subcutaneous tissues were closed with 0 Vicryl and 2-0 Vicryl interrupted suture. The skin was closed with skin elaine. Dry sterile dressing was placed over the incision. The patient was gently rolled into the supine position. The patient was awoken and extubated in the operating room. The patient was transferred to the recovery room in stable condition.
[2024-01-04] MEDS: ceFAZolin Sodium/Dextrose,Iso 2 GM/50 ML PIGGYBACK IV (22:00)
[2024-01-04] MEDS: Acetaminophen 325 MG TABLET 650 MG PO (22:00)
[2024-01-05] VITALS (9 sets, daily range): BP systolic 128–194; BP diastolic 70–89; PULSE 55–92; RESP 18–22; TEMP 36.3–37.3; O2SAT 93–100
[2024-01-05] MEDS: Acetaminophen 325 MG TABLET 650 MG PO ×2 (05:05→12:29)
[2024-01-05] MEDS: ceFAZolin Sodium/Dextrose,Iso 2 GM/50 ML PIGGYBACK IV (06:39)
[2024-01-05 07:43] LABS: Hematocrit 41.6 % (37.0-47.0); Hemoglobin 13.5 g/dl (12.0-16.0); Mean Corpuscular HGB Conc 32.5 g/dl (31.0-35.0); Mean Corpuscular Hemoglobin 30.8 pg (27.0-33.0); Mean Corpuscular Volume 94.8 fL (80.0-98.0); Mean Platelet Volume 9.3 fL (9.4-12.3); Platelet Count 675 X10*3/uL (160-400); Red Blood Count 4.39 X10*6/uL (4.20-5.50); Red Cell Distribution Width 14.2 % (11.0-16.0); White Blood Count 12.9 X10*3/uL (4.8-10.8)
[2024-01-05 07:58] LABS: Anion Gap 17 (12-20); Blood Urea Nitrogen 47 mg/dL (9-16); Calcium 9.9 mg/dL (8.4-10.2); Carbon Dioxide 24 mmol/L (22-29); Chloride 101 mmol/L (96-108); Creatinine Clr Calc Pharmacy 19.6; Estimated Glomerular Filt Rate 44; Glucose Fasting 162 mg/dL (60-99); Glucose Random 163 mg/dL (60-115); Potassium 5.4 mmol/L (3.3-5.1); Sodium 137 mmol/L (135-145)
[2024-01-05] MEDS: Aspirin 81 MG TAB.CHEW PO ×2 (08:48→20:10)
[2024-01-05] MEDS: amLODIPine Besylate 5 MG TABLET PO (08:49)
[2024-01-05] MEDS: 0.9 % Sodium Chloride Flush 3 ML SYRINGE IVFLUSH ×3 (08:49→20:12)
--- NOTE | 2024-01-05 09:16 | HO.PM.IMPN ---
Subjective Subjective Date of Service: 01/05/24 Interval History: RLE pain Physical Exam Vital Signs: Vital Signs: Last Vital Signs Temp 98.9 F 01/05/24 08:00 Pulse 69 01/05/24 08:00 Resp 18 01/05/24 08:00 BP 128/78 01/05/24 08:00 Pulse Ox 95 01/05/24 08:00 O2 Del Method Nasal Cannula 01/05/24 08:00 O2 Flow Rate 2 01/05/24 08:00 BMI result Body Mass Index 12.5 General: AO X 3, no acute distress, frail appearing Resp: diminished bilateral, no accessory muscles used CVS: S1,S2,RRR GI: soft, non tender, non distended Neuro: motor grossly intact, alert Psych: appropriate affect, appropriate insight RLE cool, no pulses, but does not appear acutely ischemic Objective Data Active Medications Acetaminophen (Acetaminophen 325 Mg Tablet) 650 mg PO Q6H PRN PRN Reason: Pain, Mild (Pain Scale 1-3), fever or headache Last Admin: 01/05/24 05:05 Dose: 650 mg Documented By: ALE Amlodipine Besylate (Amlodipine Besylate 5 Mg Tablet) 5 mg PO DAILY [facility]; Protocol Last Admin: 01/05/24 08:49 Dose: 5 mg Documented By: MINDY Aspirin (Aspirin 81 Mg Tab.Chew) 81 mg PO BID [facility] Last Admin: 01/05/24 08:50 Dose: Not Given Documented By: MINDY Non-Admin Reason: Previously Administered Benzonatate (Benzonatate 100 Mg Capsule) 100 mg PO TID PRN PRN Reason: Cough Calcium Carbonate (Calcium Carbonate 750 Mg Tab.Chew) 750 mg PO Q4H PRN PRN Reason: Heartburn Labetalol HCl (Labetalol Hcl 100 Mg/20 Ml Vial) 5 mg IVPUSH ONCE PRN PRN Reason: SBP >200 Magnesium Hydroxide (Milk Of Magnesia 30 Ml Oral.Susp) 30 ml PO DAILY PRN PRN Reason: Constipation Melatonin (Melatonin 3 Mg Tablet) 6 mg PO BEDTIME PRN PRN Reason: Insomnia Morphine Sulfate (Morphine Sulfate 2 Mg/Ml Cartridge) 2 mg IVPUSH Q4H PRN; Protocol PRN Reason: Pain, Severe (Pain Scale 7-10) Last Admin: 01/04/24 11:29 Dose: 2 mg Documented By: MINDY Naloxone HCl (Naloxone Hcl 0.4 Mg/Ml Vial) 0.04 mg IVPUSH Q5M PRN PRN Reason: Excessive sedation or RR < 8 Nicotine (Nicotine 21 Mg Patch.Td24) 21 mg TRANSDERMA DAILY [facility] Last Admin: 01/05/24 08:52 Dose: Not Given Documented By: MINDY Non-Admin Reason: Patient Refused Ondansetron HCl (Ondansetron Hcl 4 Mg/2 Ml Vial) 4 mg IVPUSH Q8H PRN PRN Reason: Nausea and Vomiting Sodium Chloride (0.9 % Sodium Chloride Flush 3 Ml Syringe) 3 ml IVFLUSH QSHIFT [facility] Last Admin: 01/05/24 08:49 Dose: 3 ml Documented By: MINDY Labs 01/05/24 06:33 01/05/24 06:33 Labs: Laboratory Results - last 24 hr 01/05/24 06:33 MCV 94.8 MCH 30.8 MCHC 32.5 RDW 14.2 Plt Count 675 H MPV 9.3 L Absolute Nucleated RBC 0.000 Nucleated RBC % (auto) 0.0 Anion Gap 17 Estim Creat Clear Calc 19.6 Estimated GFR 44 Random Glucose 163 H Fasting Glucose 162 H Calcium 9.9 D Assessment and Plan (1) Closed right hip fracture: Status: Acute Plan 83F who does not follow with PCP, no listed PMH presented s/p fall, found to be hypertensive, cachexic, emphysema on imaging, RLE severe PVD, AAA, rib fracture, and right femoral neck fracture fall complicated by right hip fracture POD 1 right hip hemiarthroplasty asa bid, PT Mild acute rhabdomyolysis given iv fluids, monitor cpk Elevated troponin Likely demand ischemia Echo without regional WMA cardio appreciated Hypertensive urgency Improved, continue amlodipine, monitor AAA Outpatient follow-up Right lower extremity peripheral vascular disease Vascular eval, asa bid Elevated creatinine LYDIA on CKD III improved mild acute hyperkalemia mointor preDM with hyperglycemia a1c 6.1 improved Severe protein calorie malnutrition Encourage p.o. intake COPD with hypoxia Suspect hypoxia chronic, O2 for goal of 90% DVT prophylaxis - asa bid DNR/DNI reason for continued hospitalization: RLE severe pvd work up Quality Stroke Does the patient have a stroke diagnosis?: No VTE Prior VTE?: No VTE Risk Level:: Medical - moderate - high VTE Device Contraindication: N/A - Device Ordered VTE Drug Contraindication: Treatment Not Indicated
--- NOTE | 2024-01-05 10:23 | P.PNOP_ITS ---
Subjective Subjective Date of Service: 01/05/24 Interval history: POD 1 s/p RT hip hemiarthroplasty patient in bed working with PT/OT has mild discomfort no overnight events states she cannot feel her right foot Physical Exam Vital Signs: Vital Signs: Last Vital Signs Temp 98.9 F 01/05/24 08:00 Pulse 69 01/05/24 08:00 Resp 18 01/05/24 08:00 BP 128/78 01/05/24 08:00 Pulse Ox 95 01/05/24 08:00 O2 Del Method Nasal Cannula 01/05/24 08:00 O2 Flow Rate 2 01/05/24 08:00 BMI result Body Mass Index 12.5 Const: General: cooperative, healthy appearing and no acute distress Resp: Effort & Inspection: normal respiratory effort and able to speak in complete sentences Cardio: Rate: regular rate Peripheral pulses: Peripheral pulses 2+ throughout GI: Palpation (GI): Soft to palpation Skin: General skin exam: no rashes or lesions noted Extrem: Other: Right hip bandage clean dry and intact inability to flex and extend the right foot Compartments soft, nontender Distal sensation diminished, capillary refill very delayed, consistent with severe peripheral vascular disease found on arterial flow scan Procedures Date of Service Date of Service: 01/05/24 Progress Note: A&P Assessment and plan (1) Closed fracture of neck of right femur: Status: Acute Assessment and Plan: * Continue pain mgmnt * Begin Aspirin for dvt ppx * begin PT for rt hip zohra * Dispo planning-Pending PT eval, pain mgmnt Need for continued inpatient stay: Time Spent With Patient Time: Total time managing care of this patient today ____ minutes. Quality Stroke Does the patient have a stroke diagnosis?: No VTE Prior VTE?: No VTE Risk Level:: Medical - moderate - high VTE Device Contraindication: N/A - Device Ordered VTE Drug Contraindication: Treatment Not Indicated
--- NOTE | 2024-01-05 12:16 | MHC.CM.PN ---
EMR REVIEWED, CM RECEIVED CALL BACK FROM PT'S DTR SUJATA TO DISCUSS DISPO PER PT& PT'S HUSBANDS REQUEST, SUJATA REPORTS SHE IS PREFERS [facility] OR [facility] AND WOULD LIKE CM TO SET UP A NEW PCP APPT FOR PT IF POSSIBLE, TASK SENT TO CM TOOL STRAIGHTENER, CM WILL CONT TO FOLLOW, PT WILL LIKELY BE CLEARED FOR DC TOMORROW 01/05.
--- NOTE | 2024-01-05 12:23 | HO.POSTANES ---
Post Anesthesia Evaluation Post Anesthesia Evaluation Date of Service: 01/05/24 Vital Signs: Vital Signs Temp Pulse Resp BP Pulse Ox O2 Del Method O2 Flow Rate 01/05/24 08:00 98.9 F 69 18 128/78 95 Nasal Cannula 2 01/05/24 07:51 55 162/75 H 93 01/05/24 03:02 97.6 F 55 20 162/75 H 93 Nasal Cannula 2 Anesthesia: General Endotracheal-GETA Mental Status: Awake Pain Control: Satisfactory Nausea/Vomiting: None Hydration: Adequate Anesthesia-Related Issues: No Anes. Related Issues
--- NOTE | 2024-01-05 14:06 | P.PNVS_ITS ---
Subjective Subjective Date of Service: 01/05/24 Interval history: Soumya is doing well this morning. She had a successful operation for fixation of a right femoral head yesterday. She states she continues to have right foot pain. She states she just wants to go home. She states her foot and right lower leg still feel the same. She states she does not feel like she can bear weight on the foot due to the pain and having difficulty feeling it. Physical Exam Vital Signs: Vital Signs: Last Vital Signs Temp 99.1 F 01/05/24 12:34 Pulse 58 01/05/24 12:34 Resp 20 01/05/24 12:34 BP 175/72 H 01/05/24 12:34 Pulse Ox 97 01/05/24 12:34 O2 Del Method Nasal Cannula 01/05/24 12:34 O2 Flow Rate 2 01/05/24 12:34 BMI result Body Mass Index 12.5 Const: General: comfortable and no acute distress Orientation/consciousness: patient oriented x3 HEENT: Ears: hearing grossly normal bilaterally Resp: Effort & Inspection: normal respiratory effort and able to speak in comp lete sentences Auscultation: clear to auscultation bilaterally Cardio: Rate: regular rate Rhythm: regular rhythm Heart sounds: S1 normal heart sound present and S2 normal heart sound present Bruits: no abdominal aortic bruits, no carotid bruits, no femoral bruits and no renal bruits GI: Palpation (GI): No Abdominal aortic bruit present Neuro: General: patient oriented x3 Cranial nerves: Yes CN's II-XII intact bilaterally Extrem: Other: Right lower extremity/foot: No palpable DP/PT pulses. Deep erythema noted dorsally from the ankle to the tips of the toes R1-3: closed ulcerations/deeper erythema noted, just below the nail bed. Left lower extremity: Palpable DP pulses. No erythema noted, no ulcerations noted. Progress Note: A&P Assessment and plan (1) PVD (peripheral vascular disease): Status: Acute Assessment and Plan: Júnior continues to endorse right lower extremity and right foot pain. She states she has no pain from the hip surgery that she had yesterday. She states she is very frustrated with the pain in her right foot. She states she just wants to go home. At this point, there is no acute vascular surgical intervention. We would like her to follow up outpatient with us. We will continue to monitor. Thank you for the consult. If there are any questions or concerns, please do not hesitate to reach out to us. Time Spent With Patient Time: Total time managing care of this patient today ___25_ minutes. Procedures Date of Service Date of Service: 01/05/24 Quality Stroke Does the patient have a stroke diagnosis?: No VTE Prior VTE?: No VTE Risk Level:: Medical - moderate - high VTE Device Contraindication: N/A - Device Ordered VTE Drug Contraindication: Treatment Not Indicated
--- NOTE | 2024-01-05 17:07 | PC.NURSE ---
urinated 375 ml clear yellow urine using bedpan , Due to void #2 at 23:00 . Bladder scanned for 0 ml
[2024-01-05] MEDS: Melatonin 3 MG TABLET 6 MG PO (20:10)
[2024-01-05] MEDS: traMADoL HCL 50 MG TABLET 25 MG PO (23:10)
[2024-01-06] VITALS (7 sets, daily range): BP systolic 163–184; BP diastolic 67–86; PULSE 59–67; RESP 18–20; TEMP 36.2–37.2; O2SAT 94–95
[2024-01-06 06:46] LABS: Hematocrit 42.6 % (37.0-47.0); Mean Corpuscular HGB Conc 32.9 g/dl (31.0-35.0); Mean Corpuscular Hemoglobin 30.6 pg (27.0-33.0); Mean Platelet Volume 9.2 fL (9.4-12.3); Platelet Count 637 X10*3/uL (160-400); Red Blood Count 4.58 X10*6/uL (4.20-5.50); Red Cell Distribution Width 14.2 % (11.0-16.0); White Blood Count 11.7 X10*3/uL (4.8-10.8)
[2024-01-06 07:05] LABS: Anion Gap 15 (12-20); Blood Urea Nitrogen 35 mg/dL (9-16); Calcium 9.5 mg/dL (8.4-10.2); Carbon Dioxide 25 mmol/L (22-29); Chloride 100 mmol/L (96-108); Creatinine Clr Calc Pharmacy 24.1; Estimated Glomerular Filt Rate 56; Glucose Fasting 103 mg/dL (60-99); Potassium 4.9 mmol/L (3.3-5.1); Sodium 135 mmol/L (135-145)
[2024-01-06] MEDS: amLODIPine Besylate 5 MG TABLET PO (09:11)
[2024-01-06] MEDS: Losartan Potassium 25 MG TABLET PO (09:11)
[2024-01-06] MEDS: Aspirin 81 MG TAB.CHEW PO ×2 (09:11→20:50)
[2024-01-06] MEDS: 0.9 % Sodium Chloride Flush 3 ML SYRINGE IVFLUSH ×3 (09:11→20:52)
[2024-01-06] MEDS: Acetaminophen 325 MG TABLET 650 MG PO ×2 (09:13→16:10)
--- NOTE | 2024-01-06 11:21 | MHC.CLN ---
F/U PT IS SEVERELY MALNOURISHED SEE FULL CLINICAL NUTRITION ASSESSMENT DATED 01/04/24 DIET ADVANCED TO REGULAR RECOMMEND ADDING ENSURE BID TO INCREASE KCALS SUPP TO PROVIDE 700KCALS, 40G PROTEIN MONITOR PO INTAKE AND ENCOURAGE SUPPLEMENTS
[2024-01-06] MEDS: oxyCODONE HCl Immed Release 5 MG TABLET 2.5 MG PO (12:06)
--- NOTE | 2024-01-06 12:15 | PM.PNCARD ---
Subjective Subjective Date of Service: 01/06/24 Interval history: Seen examined at bedside. She is postop now. Blood pressure is elevated. Physical Exam Vital Signs: Last Vital Signs Temp 98.0 F 01/06/24 07:42 Pulse 60 01/06/24 10:27 Resp 20 01/06/24 07:42 BP 165/67 H 01/06/24 10:27 Pulse Ox 94 01/06/24 10:27 O2 Del Method Nasal Cannula 01/06/24 07:42 O2 Flow Rate 2 01/06/24 07:42 BMI result Body Mass Index 12.5 GENERAL APPEARANCE: In no acute distress. NECK: no carotid bruit, no jugular venous distention. SKIN: no suspicious lesions, warm and dry. HEART: no murmurs, regular rate and rhythm. LUNGS: clear to auscultation bilaterally. ABDOMEN: soft, nontender. EXTREMITIES: no edema. NEUROLOGIC: No gross deficits, AAO X 3 Objective Labs and Meds 01/06/24 06:07 01/06/24 06:07 Lab results: Laboratory Results - last 24 hr 01/06/24 06:07 WBC 11.7 H RBC 4.58 Hgb 14.0 Hct 42.6 MCV 93.0 MCH 30.6 MCHC 32.9 RDW 14.2 Plt Count 637 H MPV 9.2 L Absolute Nucleated RBC 0.000 Nucleated RBC % (auto) 0.0 Sodium 135 Potassium 4.9 Chloride 100 Carbon Dioxide 25 Anion Gap 15 BUN 35 H Creatinine 0.95 Estim Creat Clear Calc 24.1 Estimated GFR 56 Fasting Glucose 103 H Calcium 9.5 Total Creatine Kinase 3730 H Progress Note: A&P Assessment and plan (1) PVD (peripheral vascular disease): Status: Acute (2) Hypertension: Status: Acute Plan [age] female with mechanical fall and right hip fracture status post surgery at this point. She has been diagnosed with peripheral vascular disease as well as abdominal aortic aneurysm. She will follow up with vascular surgery for that. Her blood pressure has been elevated. She was started on amlodipine 5 mg daily. My plan was to increase it to 5 mg b.i.d. but it appears she has been started on losartan 25 mg daily. I think we can continue amlodipine once a day along with losartan. Adding atorvastatin for peripheral vascular disease. She will follow-up with vascular surgery as outpatient for further management. Thank you for allowing me to participate in the care of your patient. Please feel free to contact me if you have any questions. Time Spent With Patient Time: Total time managing care of this patient today ____ minutes. Progress Note: Quality Stroke Does the patient have a stroke diagnosis?: No Procedures Date of Service Date of Service: 01/06/24
--- NOTE | 2024-01-06 12:17 | P.PNIM_ITS ---
Subjective Subjective Date of Service: 01/06/24 Interval History: seen and evaluated this morning reporting pain at site of surgery no other events overnight Review of Systems Review of Systems: Yes all other systems are reviewed and are negative Physical Exam 2 Vital Signs: Vital Signs: Last Vital Signs Temp 98.0 F 01/06/24 07:42 Pulse 60 01/06/24 10:27 Resp 20 01/06/24 07:42 BP 165/67 H 01/06/24 10:27 Pulse Ox 94 01/06/24 10:27 O2 Del Method Nasal Cannula 01/06/24 07:42 O2 Flow Rate 2 01/06/24 07:42 BMI result Body Mass Index 12.5 Const: Other: Constitutional : Awake, interactive, not in distress Neck : Normal inspection, Supple Cardiovascular : RRR, no JVP, no lower extremity edema Respiratory : good bilateral air entry, no crackles, wheezes or rhonchi Gastrointestinal: soft, lax, Normal bowel sounds, Non tender Skin : Warm, Dry Extremity: surgical site covered with dressing Neurological : Alert & oriented x3, No focal deficit Objective Data Active Medications Acetaminophen (Acetaminophen 325 Mg Tablet) 650 mg PO Q6H PRN PRN Reason: Pain, Mild (Pain Scale 1-3), fever or headache Last Admin: 01/06/24 09:13 Dose: 650 mg Documented By: FEMI Amlodipine Besylate (Amlodipine Besylate 5 Mg Tablet) 5 mg PO DAILY [facility]; Protocol Aspirin (Aspirin 81 Mg Tab.Chew) 81 mg PO BID [facility] Last Admin: 01/06/24 09:11 Dose: 81 mg Documented By: FEMI Atorvastatin Calcium (Atorvastatin Calcium 40 Mg Tablet) 40 mg PO BEDTIME [facility] Benzonatate (Benzonatate 100 Mg Capsule) 100 mg PO TID PRN PRN Reason: Cough Calcium Carbonate (Calcium Carbonate 750 Mg Tab.Chew) 750 mg PO Q4H PRN PRN Reason: Heartburn Labetalol HCl (Labetalol Hcl 100 Mg/20 Ml Vial) 5 mg IVPUSH ONCE PRN PRN Reason: SBP >200 Losartan Potassium (Losartan Potassium 25 Mg Tablet) 25 mg PO DAILY [facility]; Protocol Last Admin: 01/06/24 09:11 Dose: 25 mg Documented By: FEMI Magnesium Hydroxide (Milk Of Magnesia 30 Ml Oral.Susp) 30 ml PO DAILY PRN PRN Reason: Constipation Melatonin (Melatonin 3 Mg Tablet) 6 mg PO BEDTIME PRN PRN Reason: Insomnia Last Admin: 01/05/24 20:10 Dose: 6 mg Documented By: ALE Morphine Sulfate (Morphine Sulfate 2 Mg/Ml Cartridge) 2 mg IVPUSH Q4H PRN; Protocol PRN Reason: Pain, Severe (Pain Scale 7-10) Last Admin: 01/04/24 11:29 Dose: 2 mg Documented By: MINDY Naloxone HCl (Naloxone Hcl 0.4 Mg/Ml Vial) 0.04 mg IVPUSH Q5M PRN PRN Reason: Excessive sedation or RR < 8 Nicotine (Nicotine 21 Mg Patch.Td24) 21 mg TRANSDERMA DAILY [facility] Last Admin: 01/06/24 09:11 Dose: Not Given Documented By: FEMI Non-Admin Reason: Patient Refused Ondansetron HCl (Ondansetron Hcl 4 Mg/2 Ml Vial) 4 mg IVPUSH Q8H PRN PRN Reason: Nausea and Vomiting Oxycodone HCl (Oxycodone Hcl Immed Release 5 Mg Tablet) 2.5 mg PO Q4H PRN PRN Reason: Pain, Moderate(Pain Scale 4-6) Sodium Chloride (0.9 % Sodium Chloride Flush 3 Ml Syringe) 3 ml IVFLUSH QSHIFT [facility] Last Admin: 01/06/24 09:11 Dose: 3 ml Documented By: FEMI Labs 01/06/24 06:07 01/06/24 06:07 Labs: Laboratory Results - last 24 hr 01/06/24 06:07 MCV 93.0 MCH 30.6 MCHC 32.9 RDW 14.2 Plt Count 637 H MPV 9.2 L Absolute Nucleated RBC 0.000 Nucleated RBC % (auto) 0.0 Anion Gap 15 Estim Creat Clear Calc 24.1 Estimated GFR 56 Fasting Glucose 103 H Calcium 9.5 Total Creatine Kinase 3730 H Assessment and Plan (1) PVD (peripheral vascular disease): Status: Acute (2) Closed fracture of neck of right femur: Status: Acute (3) Hypertension: Status: Acute (4) LYDIA (acute kidney injury): Status: Acute Plan 83F who does not follow with PCP, no listed PMH presented s/p fall, found to be hypertensive, cachexic, emphysema on imaging, RLE severe PVD, AAA, rib fracture, and right femoral neck fracture fall complicated by right hip fracture POD 2 right hip hemiarthroplasty asa bid for dvt ppx Oxycodone prn for pain continue PT Mild acute rhabdomyolysis resolved, dc fluids Elevated troponin Likely demand ischemia Echo without regional WMA cardio appreciated Hypertensive urgency Improved, continue amlodipine and add losartan AAA Outpatient follow-up Right lower extremity peripheral vascular disease Vascular eval, asa bid Elevated creatinine LYDIA on CKD III improved mild acute hyperkalemia mointor preDM with hyperglycemia a1c 6.1 improved Severe protein calorie malnutrition Encourage p.o. intake COPD with hypoxia Suspect hypoxia chronic, O2 for goal of 90% DVT prophylaxis - asa bid DNR/DNI reason for continued hospitalization: Post surgery pending safe discharge plan and placement to SNF Quality Stroke Does the patient have a stroke diagnosis?: No VTE Prior VTE?: No VTE Risk Level:: Medical - moderate - high VTE Device Contraindication: N/A - Device Ordered VTE Drug Contraindication: Treatment Not Indicated
--- NOTE | 2024-01-06 14:49 | MHC.CM.PN ---
This CM met with pt and her daughter present at bedside to discuss discharge plan. At this current time, only one STR bed offer has been given from [facility], this was reviewed with the pt and her daughter. Per daughter, they accept this bed offer and would like them to pursue insurance auth. This CM has requested [facility] to pursue insurance auth.
[2024-01-06] MEDS: 0.9 % Sodium Chloride 1,000 ML 100 ML IVCONT (16:57)
[2024-01-06] MEDS: Atorvastatin Calcium 40 MG TABLET PO (20:50)
[2024-01-06] MEDS: Melatonin 3 MG TABLET 6 MG PO (20:50)
[2024-01-07] MEDS: 0.9 % Sodium Chloride 1,000 ML 100 ML IVCONT (02:48)
[2024-01-07 03:14] VITALS: BP 179/82; PULSE 77; RESP 20; TEMP 36.6; O2SAT 90
[2024-01-07] MEDS: Acetaminophen 325 MG TABLET 650 MG PO (03:31)
[2024-01-07 07:19] LABS: Anion Gap 14 (12-20); Blood Urea Nitrogen 29 mg/dL (9-16); Calcium 8.9 mg/dL (8.4-10.2); Carbon Dioxide 23 mmol/L (22-29); Chloride 103 mmol/L (96-108); Creatinine Clr Calc Pharmacy 27.6; Estimated Glomerular Filt Rate > 60; Glucose Random 122 mg/dL (60-115); Potassium 4.3 mmol/L (3.3-5.1); Sodium 136 mmol/L (135-145)
[2024-01-07 07:44] VITALS: BP 142/75; PULSE 71; RESP 18; TEMP 36.6; O2SAT 92
--- NOTE | 2024-01-07 07:57 | P.PNOP_ITS ---
Subjective Subjective Date of Service: 01/07/24 Interval history: POD 3 s/p RT hip hemiarthroplasty patient in bed working with PT/OT has no discomfort at this time no overnight events states she cannot feel her right foot Physical Exam 2 Vital Signs: Vital Signs: Last Vital Signs Temp 98 F 01/07/24 07:44 Pulse 71 01/07/24 07:44 Resp 18 01/07/24 07:44 BP 142/75 H 01/07/24 07:44 Pulse Ox 92 01/07/24 07:44 O2 Del Method Room Air 01/07/24 07:44 O2 Flow Rate 2 01/06/24 15:33 BMI result Body Mass Index 12.5 Const: General: cooperative, healthy appearing and no acute distress Resp: Effort & Inspection: normal respiratory effort and able to speak in complete sentences Cardio: Rate: regular rate Peripheral pulses: Peripheral pulses 2+ throughout GI: Palpation (GI): Soft to palpation Skin: General skin exam: no rashes or lesions noted Extrem: Other: Right hip bandage clean dry and intact Patient can minimally flex and extend the digits of the right foot at this time Compartments soft, nontender Distal sensation diminished, capillary refill very delayed, consistent with severe peripheral vascular disease found on arterial flow scan Procedures Date of Service Date of Service: 01/07/24 Progress Note: A&P Assessment and plan (1) Closed fracture of neck of right femur: Status: Acute Assessment and Plan: * Continue pain mgmnt * Begin Aspirin for dvt ppx * begin PT for rt hip zohra * Dispo planning-Pending PT eval, pain mgmnt Time Spent With Patient Time: Total time managing care of this patient today ____ minutes. Quality Stroke Does the patient have a stroke diagnosis?: No VTE Prior VTE?: No VTE Risk Level:: Medical - moderate - high VTE Device Contraindication: N/A - Device Ordered VTE Drug Contraindication: Treatment Not Indicated
--- NOTE | 2024-01-07 08:56 | HO.VASCPN ---
Subjective Subjective Date of Service: 01/07/24 Interval history: Soumya remains stable this morning. She continues to endorse pain in the right foot/lower leg. She states she has not been getting out of bed. She has not been eating/drinking well. She states she has not been sleeping well. Physical Exam Vital Signs: Vital Signs: Last Vital Signs Temp 98 F 01/07/24 07:44 Pulse 71 01/07/24 07:44 Resp 18 01/07/24 07:44 BP 142/75 H 01/07/24 07:44 Pulse Ox 92 01/07/24 07:44 O2 Del Method Room Air 01/07/24 07:44 O2 Flow Rate 2 01/06/24 15:33 BMI result Body Mass Index 12.5 Const: Other: Confused to date/time. General: comfortable, no acute distress and confusion Orientation/consciousness: confusion HEENT: Ears: hearing grossly normal bilaterally Resp: Effort & Inspection: normal respiratory effort and able to speak in complete sentences Auscultation: clear to auscultation bilaterally Cardio: Rate: regular rate Rhythm: regular rhythm Heart sounds: S1 normal heart sound present and S2 normal heart sound present Bruits: no abdominal aortic bruits, no carotid bruits, no femoral bruits and no renal bruits GI: Palpation (GI): No Abdominal aortic bruit present Neuro: General: confusion Cranial nerves: Yes CN's II-XII intact bilaterally Extrem: Other: Right lower extremity: cool to the touch, unable to palpate DP/PT pulses. Closed ulcers noted below the toenails on R1-3 Progress Note: A&P Assessment and plan (1) PVD (peripheral vascular disease): Status: Acute Assessment and Plan: Soumya remains stable from a vascular standpoint. She continues to endorse right lower extremity pain and right foot pain. At this point, she will need some outpatient re-evaluation and treatment plan. We will continue to monitor. If there are any questions or concerns, please do not hesitate to reach out to us. Time Spent With Patient Time: Total time managing care of this patient today _20___ minutes. Procedures Date of Service Date of Service: 01/07/24 Quality Stroke Does the patient have a stroke diagnosis?: No VTE Prior VTE?: No VTE Risk Level:: Medical - moderate - high VTE Device Contraindication: N/A - Device Ordered VTE Drug Contraindication: Treatment Not Indicated
[2024-01-07] MEDS: Losartan Potassium 25 MG TABLET PO (09:23)
[2024-01-07] MEDS: amLODIPine Besylate 5 MG TABLET PO (09:23)
[2024-01-07] MEDS: Aspirin 81 MG TAB.CHEW PO (09:23)
[2024-01-07] MEDS: 0.9 % Sodium Chloride Flush 3 ML SYRINGE IVFLUSH (09:26)
[2024-01-07 10:04] VITALS: BP 142/75; PULSE 71; O2SAT 92
--- NOTE | 2024-01-07 11:43 | P.DS_ITS ---
DS: Providers Provider Date of Service: 01/07/24 Date of admission: 01/02/24 20:32 Date of discharge: 01/07/24 Primary care physician: None Physician Consults: 01/02/24 20:46 Consult to Orthopedics Routine Consulting Provider: [facility] – [place] [facility] Reason for consultation: Impacted right subcapital femoral neck fracture Consult to Vascular Surgery Routine Consulting Provider: [facility] [place] V[facility] Reason for consultation: AAA 5.2cm, severe PVD 01/03/24 18:39 Consult to Cardiology Routine Consulting Provider: [facility] [place] [facility] Reason for consultation: risk strafication for hip surgery Has provider been notified: No DS: Diagnosis Discharge Diagnosis (1) PVD (peripheral vascular disease): Status: Acute (2) Closed fracture of neck of right femur: Status: Acute (3) Closed right hip fracture: Status: Acute (4) LYDIA (acute kidney injury): Status: Acute (5) Hypertension: Status: Acute (6) Rhabdomyolysis: Status: Acute (7) Fall: Status: Acute DS: Summary Hospital Course Hospital Course: Admission note HPI Pt is a 83-year-old female with no known significant PMH who has not seen a medical provider in 30+ years who presents to the ED with?right leg and knee pain after a mechanical fall at home 2 days prior. Pt is accompanied by her daughters who help supplement HPI. Pt reports was putting the TV remote on a side table when she fell, landing on her right side. Pt is unsure exactly how she fell but denies lightheadedness or dizziness. Experienced right knee and leg pain and found she was unable to stand or support her weight. Also had right foot numbness and felt right leg was cold. Called out to her daughter who lives in a separate part of the house and she and her were able to help patient back into the bed. Family attempted to convince patient to come to the ED at that time for further evaluation, but patient refused as she likes to take care of herself. The following day pt had continued pain and was unable to ambulate or support weight on her right leg, but again refused medical evaluation. Patient eventually relented today to come to the hospital for treatment. Family also reports patient apparently had another fall at home earlier in the week. Patient otherwise denies any acute medical complaints. No change to bowel or bladder habits. Denies chest pain/pressure, palpitations. No shortness of breath or difficulty breathing. Denies nausea, vomiting, abdominal pain. Of note, daughter states patient has not left the house and over 5 years. Patient has around a 100+ pack-year smoking history. Has been smoking mostly 2 packs per day since age 14, though recently cut back to a pack daily. Normally eats 1-2 meals daily and drinks Boost nutritional supplement. In the ED pt was hypertensive up to 239/101, vitals otherwise stable and WNL. Labs were significant for BUN 47, creatinine 1.49, AST 83, ALT 56, CPK 1446, and initial troponin 207.3 with repeat flat at 148.0. No leukocytosis. Stable H&H. No significant electrolyte abnormalities. Hip and pelvis x-ray showed impacted right subcapital femoral neck fracture. Right lower extremity arterial duplex showed severe peripheral vascular disease without occlusion, suggesting inflow disease. X-ray of right knee negative for acute fracture or dislocation. Venous duplex of right lower extremity negative for DVT. Head CT negative for acute intracranial pathology. CT of cervical spine negative for acute fracture or subluxation. CT of chest and abdomen found angulated right 2nd rib fracture anteriorly, triple a measuring 5.2 x 3.9 cm, and severe centrilobular emphysema. EKG demonstrated sinus rhythm with PACs but no evidence of significant ST elevations or depressions. Pt was treated with 2 L IVF, morphine, acetaminophen, ondansetron, amlodipine 5 mg p.o., and labetalol 5 mg IV. Pt will be admitted to the hospital for treatment and further evaluation of acute right hip fracture with surgical intervention likely on Thursday. Hospital course The patient was admitted for treatment of fall complicated by right hip fracture requiring orthopedic intervention for right hip hemiarthroplasty that went well. Started on Aspirin 81 mg bid for dvt ppx given her low weight. Oxycodone prn for pain. Seen by PT and will be discharged to SNF for further PT. Mild acute rhabdomyolysis resolved with usage of IV fluids Noted to have Elevated troponin. Likely demand ischemia after the fall. Echo without regional WMA. cardiology followed the patient and recommended blood pressure control. Hypertensive urgency Improved with amlodipine and losartan. To be monitored at facility for further adjustments. Hx of AAA and Right lower extremity peripheral vascular disease , for Outpatient follow-up with vascular surgery team who followed her during hospital stay. Dr Suarez. To continue Aspirin bid and statin on discharge. As US doppler showed Severe peripheral vascular disease. Monophasic flow throughout the right lower extremity suggesting inflow disease. LYDIA on CKD III, improved, to repeat BMP as outpatient. Discharge plan Aspirin twice daily for clot prevention Start Atorvastatin Amlodipine and Losartan for BP control Oxycodone as needed for pain management Physical therapy at facility Follow with [facility] – [place] orthopedics in 2 weeks Time Attestation Discharge Coordination Time (in mins): 46 Quality: Safe Use of Opioids Does Pt have an Active Cancer Diagnosis on the Problem List?: No Quality: Stroke Does the patient have a stroke diagnosis?: No Physical Exam Vital Signs: Vital Signs: Last Vital Signs Temp 98 F 01/07/24 07:44 Pulse 71 01/07/24 10:04 Resp 18 01/07/24 07:44 BP 142/75 H 01/07/24 10:04 Pulse Ox 92 01/07/24 10:04 O2 Del Method Room Air 01/07/24 07:44 O2 Flow Rate 2 01/06/24 15:33 BMI result Body Mass Index 12.5 Const: Other: Constitutional : Awake, interactive, not in distress Neck : Normal inspection, Supple Cardiovascular : RRR, no JVP, no lower extremity edema Respiratory : good bilateral air entry, no crackles, wheezes or rhonchi Gastrointestinal: soft, lax, Normal bowel sounds, Non tender Skin : Warm, Dry, Right lower extremity is colder with dusky discoloration of toes in right foot. no signs of acute ischemia at this point. Extremity: surgical site covered with dressing Neurological : Alert & oriented x3, No focal deficit DS: Data Data Completed and Pending Pending studies at discharge: Pending at discharge 01/04/24 15:09 Surgical [PTH] Routine Labs on day of discharge: Laboratory Results - last 24 hr 01/07/24 06:27 Hold Purple Top SEE NOTE Sodium 136 Potassium 4.3 Chloride 103 Carbon Dioxide 23 Anion Gap 14 BUN 29 H Creatinine 0.83 Estim Creat Clear Calc 27.6 Estimated GFR > 60 Random Glucose 122 H Calcium 8.9 D Total Creatine Kinase 2576 H Imaging XR : Radiologist's impression: ITS Impressions Knee X-Ray 01/02/24 15:00 IMPRESSION: 1. No acute fracture or dislocation. 2. Minimal degenerative changes of the medial joint space. Electronically signed by: Shirlene Hand MD 01/02/2024 04:14 PM EST RP Venous Duplex 01/02/24 15:47 IMPRESSION: No evidence of deep venous thrombosis involving the right lower extremity. Electronically signed by: Ashley Spaulding MD 01/02/2024 04:49 PM EST RP Duplex Scan Lower Extremity Artery 01/02/24 15:51 IMPRESSION: Severe peripheral vascular disease. Monophasic flow throughout the right lower extremity suggesting inflow disease. Electronically signed by: Ashley Spaulding MD 01/02/2024 04:51 PM EST RP Abdomen/Pelvis CT 01/02/24 16:17 IMPRESSION: 1. Impacted, angulated right subcapital femoral neck fracture. 2. Angulated right second rib fracture anteriorly. Infrarenal abdominal aortic aneurysm measuring 5.2 x 3.9 cm. Based on published guidelines in J Am Kristine Radiol 2013; 10(10):789-794 and J Vasc Surg. 2018; 67:2-77, the recommendation for an abdominal aortic aneurysm with diameter 4.5-5.4 cm is vascular consultation and subsequent follow-up every 6 months. 3. Severe centrilobular emphysema. Electronically signed by: Silverio Stark MD 01/02/2024 05:44 PM EST RP Cervical Spine CT 01/02/24 16:17 IMPRESSION: No acute intracranial pathology. No acute fracture subluxation cervical spine. Electronically signed by: Richard Rendon MD 01/02/2024 05:40 PM EST RP Chest CT 01/02/24 16:17 IMPRESSION: 1. Impacted, angulated right subcapital femoral neck fracture. 2. Angulated right second rib fracture anteriorly. Infrarenal abdominal aortic aneurysm measuring 5.2 x 3.9 cm. Based on published guidelines in J Am Kristine Radiol 2013; 10(10):789-794 and J Vasc Surg. 2018; 67:2-77, the recommendation for an abdominal aortic aneurysm with diameter 4.5-5.4 cm is vascular consultation and subsequent follow-up every 6 months. 3. Severe centrilobular emphysema. Electronically signed by: Silverio Stark MD 01/02/2024 05:44 PM EST RP Head CT 01/02/24 16:17 IMPRESSION: No acute intracranial pathology. No acute fracture subluxation cervical spine. Electronically signed by: Richard Rendon MD 01/02/2024 05:40 PM EST RP Hip/Pelvis X-Ray 01/02/24 18:45 IMPRESSION: Impacted right subcapital femoral neck fracture. Electronically signed by: Kunal Palafox MD 01/02/2024 07:27 PM EST RP Pelvis X-Ray 01/04/24 18:23 IMPRESSION: Satisfactory appearance of the right hip prosthesis. Detail of the bony pelvis is obscured. Electronically signed by: Richard Harding MD 01/05/2024 09:34 AM EST RP Discharge Plan Discharge Anticipated Discharge Date/Time: 01/07/24 11:21 Patient Disposition: Xfer SNF Discharge Diagnosis: Hip fracture Acute kidney injury Referrals: [facility] [Outside] - 1 Week Rafita Valadez PA-C [Physician Corporate Planning Manager] - 03/30/24 10:30 am (NEW PATIENT PCP APPT. ) Hu Mason MD [Physician] - 2 Weeks Discharge Medications: New oxycodone 5 mg Tablet 2.5 mg PO Q4H PRN (Reason: Pain, Moderate(Pain Scale 4-6)) Qty: 15 0RF Rx Instructions: Partial Fill upon patient request. atorvastatin 40 mg Tablet 40 mg PO BEDTIME Qty: 90 0RF amlodipine 5 mg Tablet 5 mg PO DAILY Qty: 90 0RF Protocol: Hold for SBP< HOLD for SBP < : 90 losartan 25 mg Tablet 25 mg PO DAILY Qty: 90 0RF Protocol: Hold for SBP< HOLD for SBP < : 90 aspirin 81 mg Tablet,Chewable 81 mg PO BID Qty: 60 0RF Continued acetaminophen 500 mg Tablet 500 mg PO Q6H PRN (Reason: Pain) Discharge Orders: Discharge Order (Routine); Ordered 01/07/24 Ordered By: Carmen Posadas Diet: Regular diet Activity on Discharge: Use cane or walker Stand Alone Forms: Patient Portal Discharge page Print Language: Korean Other Ambulatory Orders: Basic Metabolic Panel (Routine) Timeframe: 1 Week Facility: [facility] - Location: Laboratory Ordered By: Carmen Posadas Activity Restrictions/Additional Instructions: * Physical Therapy for partial hip arthroplasty: wbat, gait training, ROM, strength * Limit stair climbing * No showering, no tub bath-keep dressing clean, dry and intact * No driving x6 weeks * Continue Aspirin twice a day x 6 weeks * Follow up with [facility] [place] Orthopedics in 2 weeks: * Care Plan Goals: Aspirin twice daily for clot prevention, then decrease to 1 tab daily for peripheral vascular disease Start Atorvastatin Amlodipine and Losartan for BP control Oxycodone as needed for pain management Physical therapy at facility Follow with [facility] [place] orthopedics in 2 weeks Health Concerns: Hip fracture Plan of Treatment: Pain medications, physical therapy Assessment: as above
--- NOTE | 2024-01-07 12:21 | MHC.CM.PN ---
Second IMM given 01/06. Pt is medically cleared for discharge to [facility] at [facility], and [facility] insurance auth has been received. Pt will transport via [facility]. Pt and her daughter Nimco are aware and in agreement with dicharge plan.
== END 2024-01-07 13:17 | disposition skilled nursing facility (03) | DRG 521 ==
LOC: HO.ED 16:01 → HO.EDOVER 20:44 → HO.IMC 21:29
PROVIDERS: Internal Medicine; Orthopaedic Surgery; Physician Assistant; Admitting Provider Student in an Organized Health Care Education/Training Program; Emergency Provider Emergency Medicine; Visit Provider Student in an Organized Health Care Education/Training Program
PROC: 0SRR0J9 Replacement of Right Hip Joint, Femoral Surface with Synthetic Substitute, Cemented, Open Approach (ICD-10-PCS; CPT 27125; principal; 2024-01-04 14:30)
DX: S72.011A Unspecified intracapsular fracture of right femur, initial encounter for closed fracture (principal); E43 Unspecified severe protein-calorie malnutrition; S22.31XA Fracture of one rib, right side, initial encounter for closed fracture; M62.82 Rhabdomyolysis; N17.9 Acute kidney failure, unspecified; Z68.1 Body mass index [BMI] 19.9 or less, adult; I12.9 Hypertensive chronic kidney disease with stage 1 through stage 4 chronic kidney disease, or unspecified chronic kidney disease; N18.30 Chronic kidney disease, stage 3 unspecified; R73.03 Prediabetes; E87.5 Hyperkalemia; W19.XXXA Unspecified fall, initial encounter; J43.9 Emphysema, unspecified; I71.43 Infrarenal abdominal aortic aneurysm, without rupture; I73.9 Peripheral vascular disease, unspecified; Z66 Do not resuscitate; I16.0 Hypertensive urgency; F17.210 Nicotine dependence, cigarettes, uncomplicated; Z71.6 Tobacco abuse counseling; Z79.899 Other long term (current) drug therapy
CPT/HCPCS: 36415; 70450; 71250; 72125; 72170; 73502; 73564; 74176; 80048; 80053; 80061; 82550; 83036; 83735; 84484; 85025; 85027; 85610; 88305; 88311; 93005; 93306; 93926; 93971; 97116; 97162; 97166; 97530; 97535; 99285; C1758; C1776; J0131; J0690; J1100; J1920; J2003; J2270; J2371; J2405; J2704; J3010; J3370; Q9957

== ENCOUNTER → 2024-01-02 14:56 | Outpatient (BNV) | payer MEDICARE, SELFPAY | PROVIDERS: Admitting Provider Student in an Organized Health Care Education/Training Program; Emergency Provider Emergency Medicine; Visit Provider Internal Medicine Cardiovascular Disease | DX: I49.1 Atrial premature depolarization (principal); I45.9 Conduction disorder, unspecified; R94.31 Abnormal electrocardiogram [ECG] [EKG] | CPT/HCPCS: 93010 ==

== ENCOUNTER 2024-01-02 20:32 | Outpatient (BNV) | payer MEDICARE, SELFPAY | END 2024-01-04 07:00 | PROVIDERS: Admitting Provider Student in an Organized Health Care Education/Training Program; Emergency Provider Emergency Medicine; Visit Provider Internal Medicine Cardiovascular Disease | DX: I34.0 Nonrheumatic mitral (valve) insufficiency (principal); I27.20 Pulmonary hypertension, unspecified | CPT/HCPCS: 93306 ==

== ENCOUNTER → 2024-01-02 20:32 | Outpatient (BNV) | payer MEDICARE, SELFPAY | PROVIDERS: Admitting Provider Student in an Organized Health Care Education/Training Program; Emergency Provider Emergency Medicine | DX: S72.001A Fracture of unspecified part of neck of right femur, initial encounter for closed fracture (principal) | CPT/HCPCS: 27236; 99024; 99223 ==

== ENCOUNTER → 2024-01-02 20:32 | Outpatient (BNV) | payer MEDICARE, SELFPAY | PROVIDERS: Admitting Provider Student in an Organized Health Care Education/Training Program; Emergency Provider Emergency Medicine; Visit Provider Physician Assistant Surgical | DX: I73.9 Peripheral vascular disease, unspecified (principal) | CPT/HCPCS: 99222; 99232; 99499 ==

== ENCOUNTER → 2024-01-02 20:32 | Outpatient (BNV) | payer MEDICARE, SELFPAY | PROVIDERS: Admitting Provider Student in an Organized Health Care Education/Training Program; Emergency Provider Emergency Medicine; Visit Provider Student in an Organized Health Care Education/Training Program | DX: I73.9 Peripheral vascular disease, unspecified (principal); S72.001A Fracture of unspecified part of neck of right femur, initial encounter for closed fracture; N17.9 Acute kidney failure, unspecified; I10 Essential (primary) hypertension; M62.82 Rhabdomyolysis; W19.XXXA Unspecified fall, initial encounter | CPT/HCPCS: 99222; 99232; 99239 ==

== ENCOUNTER → 2024-01-02 20:32 | Outpatient (BNV) | payer MEDICARE, SELFPAY | PROVIDERS: Admitting Provider Student in an Organized Health Care Education/Training Program; Emergency Provider Emergency Medicine; Visit Provider Internal Medicine Cardiovascular Disease | DX: I73.9 Peripheral vascular disease, unspecified (principal); I10 Essential (primary) hypertension | CPT/HCPCS: 99223; 99233 ==